=== PATIENT | female | born 1930 | race Caucasian/White ===

== ENCOUNTER 2017-10-30 15:45 | Emergency (ER) | payer MEDICARE ==
[~2017-10-30] VITALS: Ht 157.5 cm; Wt 58.0 kg
[~2017-10-30 15:45] MED LIST: ATOR10TA15 PO; CYAN1TAB24; DIGO0.12 PO; ESCI20TA PO; FURO40TA PO; METO1TAB9 PO; MONT10TA4 PO; POTA10TA2 PO; ROBA500T PO; SYSTSOL EACH EYE; XARE15TA PO
[2017-10-30 15:56] VITALS: BP 150/78; PULSE 80; RESP 16; TEMP 98; O2SAT 95
--- NOTE | 2017-10-30 16:24 | PD ---
HPI Chief Complaint: Fall Time Seen by Provider: 16:15 Travel History International Travel<30 days: No Contact w/Intl Traveler<30days: No Traveled to known affect area: No History of Present Illness HPI The patient was seen and examined in the presence of the nurse. This patient complains of pain in both knees from a fall. She fell last night. She has been ambulatory today but has pain with walking. She has some chronic discomfort in arthritis in both knees. Symptom severity is moderate. Worse with ambulation and weightbearing. No alleviating factors. Duration 1 day. She also mentions a dry cough but has no shortness of breath or chest pain or fever. No history of lung disease. PFSH Past Medical History Hx Anticoagulant Therapy: Yes (XERELTO) Cardiovascular Problems: Yes (CHF, A-FIB, MITRAL VALVE) Social History Alcohol Use: No Tobacco Use: No Substance Use: No Allergies-Medications (Allergen,Severity, Reaction): Coded Allergies: No Known Drug Allergies (Verified Allergy, Unknown, 07/26/17) Reported Meds & Prescriptions Reported Meds & Active Scripts Active Potassium Chloride ER (Potassium Chloride) 10 Meq Tab 10 Meq PO TID Atorvastatin (Atorvastatin Calcium) 10 Mg Tab 10 Mg PO HS Montelukast (Montelukast Sodium) 10 Mg Tab 10 Mg PO HS Escitalopram (Escitalopram Oxalate) 20 Mg Tab 20 Mg PO DAILY Reported Digoxin 0.125 Mg Tab 0.125 Mg PO DAILY Systane Opth Drops (Polyethylene Glycol-Propylene Glycol Opth Drp) 0.4-0.3% Soln 1-2 Drop EACH EYE PRN PRN B12 (Cyanocobalamin) 1,000 Mcg Tab Xarelto (Rivaroxaban) 15 Mg Tab 15 Mg PO DAILY Metoprolol Succinate ER 24 HR (Metoprolol Succinate) 50 Mg Tab 50 Mg PO DAILY Furosemide 40 Mg Tab 40 Mg PO DAILY Review of Systems General / Constitutional: No: Fever Eyes: No: Visual changes HENT: No: Headaches Cardiovascular: No: Chest Pain or Discomfort Respiratory: Positive: Cough, No: Shortness of Breath Gastrointestinal: No: Abdominal Pain Genitourinary: No: Dysuria Musculoskeletal: Positive: Arthralgias, Limited ROM, Pain Skin: No Rash Neurologic: No: Weakness Psychiatric: No: Depression Endocrine: No: Polydipsia Hematologic/Lymphatic: No: Easy Bruising Physical Exam Narrative GENERAL: Well-nourished, well-developed patient in no apparent distress. SKIN: Focused skin assessment reveals no rash and nodules. Skin is Warm and dry. HEAD: Atraumatic. Normocephalic. EYES: Pupils equal and round. No scleral icterus. No injection or drainage. ENT: No nasal bleeding or discharge. Mucous membranes pink and moist. NECK: Trachea midline. No JVD. CARDIOVASCULAR: Irregularly irregular rhythm. No murmur appreciated. RESPIRATORY: No accessory muscle use. Clear to auscultation. Breath sounds equal bilaterally. GASTROINTESTINAL: Abdomen soft, non-tender, nondistended. Hepatic and splenic margins not palpable. MUSCULOSKELETAL: No obvious deformities. No clubbing. No cyanosis. No edema. There is some tenderness to both knees. There is a bit of arthritic change. There is a small bruise on the right knee. NEUROLOGICAL: Awake and alert. No obvious cranial nerve deficits. Motor grossly within normal limits. Normal speech. PSYCHIATRIC: Appropriate mood and affect; insight and judgment normal. Data Data Last Documented VS Vital Signs Date Time Temp Pulse Resp B/P (MAP) Pulse Ox O2 Delivery O2 Flow Rate FiO2 10/30/17 17:25 81 16 142/82 (102) 94 Room Air 10/30/17 15:56 98.0 Orders Orders Knee, Complete (4vws) (10/30/17 ) Knee, Complete (4vws) (10/30/17 ) MDM Medical Decision Making Medical Screen Exam Complete: Yes Emergency Medical Condition: Yes Medical Record Reviewed: Yes Differential Diagnosis Fracture, contusion, dislocation Narrative Course I have reviewed the patient's electronic medical record. I think she may have a viral bronchitis. She is not short of breath and I do not see any indication to work this up extensively at this point I have ordered bilateral knee x-rays. This is her chief complaint. Both knee x-rays are reviewed. There is no fracture. There is osteopenia with arthritic change Incidental note of a questionable loose body but I do not feel this is anything to do with the fall Diagnosis Primary Impression: Knee pain, acute Qualified Codes: M25.561 - Pain in right knee; M25.562 - Pain in left knee Additional Impressions: Fall Qualified Codes: W19.XXXA - Unspecified fall, initial encounter Cough Additional Instructions: Ice and elevate and rest the knees The patient was advised to follow up with their physician and return if they worsen. Med/Other Pt SpecificInfo: Other Disposition: 01 DISCHARGE HOME Condition: Stable Isauro De Leon MD Oct 30, 2017 16:24
--- NOTE | 2017-10-30 17:22 | RADRPT ---
EXAM DATE/TIME: 10/30/2017 16:25 [facility] COMPARISON: No previous studies available for comparison. INDICATIONS : Bilateral knee pain after falling last night. Patient states the whole knee hurts in both knees. MEDICAL HISTORY : Osteoporosis. SURGICAL HISTORY : None. ENCOUNTER: Initial ACUITY: 2 days PAIN SCORE: 10/10 LOCATION: Left knee. FINDINGS: There is diffuse osteopenia. There is narrowing of the medial and lateral compartment of the knee wi th chondrocalcinosis of the menisci. Moderate osteophyte formation the lateral compartment. The sup rapatellar soft tissues are normal in thickness. There is a calcification superimposed over the supe rior aspect of the suprapatellar soft tissues which could possibly represent a loose body within the suprapatellar bursa. No definite fracture is seen. CONCLUSION: 1. No definite fractures seen. 2. Diffuse severe osteopenia. 3. Possible loose body in the nondistended suprapatella bursa. Perico Leger MD on October 30, 2017 at 17:14 Board Certified Radiologist. This report was verified electronically.
--- NOTE | 2017-10-30 17:23 | RADRPT ---
EXAM DATE/TIME: 10/30/2017 16:25 [facility] COMPARISON: No previous studies available for comparison. INDICATIONS : Bilateral knee pain after falling last night. Patient states the whole knee hurts in both knees. MEDICAL HISTORY : Osteoporosis. SURGICAL HISTORY : None. ENCOUNTER: Initial ACUITY: 2 days PAIN SCORE: 10/10 LOCATION: Right knee FINDINGS: Severe osteopenia. Marked narrowing of the lateral compartment of the knee with sclerosis of both si joellen and large osteophytes. Moderate severity degenerative changes in patellofemoral compartment. Ch ondrocalcinosis in the medial meniscus. The suprapatellar soft tissues are normal in thickness. No definite fracture seen. CONCLUSION: 1. No fracture seen. 2. Severe osteopenia. 3. Severe degenerative changes in the lateral compartment. Perico Leger MD on October 30, 2017 at 17:20 Board Certified Radiologist. This report was verified electronically.
[2017-10-30 17:25] VITALS: BP 142/82; PULSE 81; RESP 16; O2SAT 94
== END 2017-10-30 17:54 | disposition home or self-care (01) ==
LOC: PHED 15:45
DX: M25.561 Pain in right knee (principal); M25.562 Pain in left knee; W19.XXXA Unspecified fall, initial encounter; R05 Cough; M17.0 Bilateral primary osteoarthritis of knee; I50.9 Heart failure, unspecified; I48.91 Unspecified atrial fibrillation
CPT/HCPCS: 73564; 99283

== ENCOUNTER 2017-12-24 10:35 | Observation (INO) | payer MEDICARE ==
[2017-12-24] VITALS (7 sets, daily range): BP systolic 132–166; BP diastolic 79–98; PULSE 86–108; RESP 18–20; TEMP 96.8–97.5; O2SAT 92–98
[~2017-12-24] VITALS: Ht 157.5 cm; Wt 53.5 kg
[~2017-12-24 10:35] MED LIST changes: -ROBA500T PO
[2017-12-24] MEDS ORDERED: RANI150T PO (11:04)
[2017-12-24] MEDS ORDERED: METO1TAB43 PO (11:04)
[2017-12-24] MEDS ORDERED: METO1TAB9 PO (11:04)
[2017-12-24] MEDS ORDERED: IRONTAB5 PO (11:04)
--- NOTE | 2017-12-24 11:09 | PD ---
HPI Chief Complaint: Respiratory Symptoms Time Seen by Provider: 10:53 Travel History International Travel<30 days: No Contact w/Intl Traveler<30days: No Traveled to known affect area: No History of Present Illness HPI 87yo F with PMH of CHF, afib on digoxin and xarelto, breast CA in remission presents to the ED with c/o cough and increased phlegm since yesterday. Said she also feels sob. Pt also has epigastric abdominal pain for about 1 week and tripped over her cat 3 days ago and has bilateral anterior rib pain. Said it's not really chest pain, more where she fell across her lower chest. Denies any fever, n/v, dysuria, hematuria, focal weakness or numbness. PFSH Past Medical History Hx Anticoagulant Therapy: Yes (XERELTO) Arthritis: Yes Heart Rhythm Problems: Yes (Afib) Cancer: Yes (Breast) Cardiovascular Problems: Yes (CHF, A-FIB, MITRAL VALVE) Congestive Heart Failure: Yes Diminished Hearing: Yes Tetanus Vaccination: Unknown ?: Not Past Surgical History Cholecystectomy: Yes Mastectomy: Yes (Left) Social History Alcohol Use: No Tobacco Use: No Substance Use: No Allergies-Medications (Allergen,Severity, Reaction): Coded Allergies: No Known Drug Allergies (Verified Allergy, Unknown, 12/24/17) Reported Meds & Prescriptions Reported Meds & Active Scripts Active Potassium Chloride ER (Potassium Chloride) 10 Meq Tab 10 Meq PO TID Atorvastatin (Atorvastatin Calcium) 10 Mg Tab 10 Mg PO HS Montelukast (Montelukast Sodium) 10 Mg Tab 10 Mg PO HS Escitalopram (Escitalopram Oxalate) 20 Mg Tab 20 Mg PO DAILY Reported [Iron] 65 Mg PO DAILY Ranitidine (Ranitidine HCl) 150 Mg Tab 150 Mg PO BID Metoprolol Succinate ER 24 HR (Metoprolol Succinate) 50 Mg Tab 50 Mg PO BID Metoprolol Succinate ER 24 HR (Metoprolol Succinate) 100 Mg Tab 100 Mg PO DAILY Digoxin 0.125 Mg Tab 0.125 Mg PO DAILY B12 (Cyanocobalamin) 1,000 Mcg Tab Xarelto (Rivaroxaban) 15 Mg Tab 15 Mg PO DAILY Furosemide 40 Mg Tab 40 Mg PO DAILY Review of Systems Except as stated in HPI: all other systems reviewed are Neg Physical Exam Narrative GENERAL: 87yo F in mild distress. SKIN: Focused skin assessment warm/dry. HEAD: Atraumatic. Normocephalic. EYES: Pupils equal and round. No scleral icterus. No injection or drainage. ENT: No nasal bleeding or discharge. Mucous membranes pink and moist. NECK: Trachea midline. No JVD. CARDIOVASCULAR: Regular rate and rhythm. No murmur appreciated. RESPIRATORY: + accessory muscle use. Decreased breath sound in right lower lung. +Crackles in left lower lung. GASTROINTESTINAL: Abdomen soft, soft tissue swelling epigastric region with ttp. No rebound tenderness or guarding. MUSCULOSKELETAL: No obvious deformities. No clubbing. No cyanosis. +Bilateral lower extremity edema. NEUROLOGICAL: Awake and alert. No obvious cranial nerve deficits. Motor grossly within normal limits. Normal speech. PSYCHIATRIC: Appropriate mood and affect; insight and judgment normal. Data Data Last Documented VS Vital Signs Date Time Temp Pulse Resp B/P (MAP) Pulse Ox O2 Delivery O2 Flow Rate FiO2 12/24/17 10:58 92 Nasal Cannula 2.00 12/24/17 10:52 97.5 87 20 144/85 (104) Orders Orders Complete Blood Count With Diff (12/24/17 11:01) Basic Metabolic Panel (Bmp) (12/24/17 11:01) B-Type Natriuretic Peptide (12/24/17 11:01) Act Partial Throm Time (Ptt) (12/24/17 11:01) Prothrombin Time / Inr (Pt) (12/24/17 11:01) Magnesium (Mg) (12/24/17 11:01) Troponin I (12/24/17 11:01) Urinalysis - C+S If Indicated (12/24/17 11:01) Chest, Single Ap (12/24/17 11:01) Lipase (12/24/17 11:01) Ct Abd/Pel W Iv Contrast(Rout) (12/24/17 ) Digoxin (12/24/17 11:02) Furosemide Inj (Lasix Inj) (12/24/17 11:45) Iohexol 350 Inj (Omnipaque 350 Inj) (12/24/17 11:51) Admit Order (Ed Use Only) (12/24/17 12:50) Labs Laboratory Tests Test 12/24/17 11:05 12/24/17 12:25 White Blood Count 7.3 TH/MM3 Red Blood Count 4.02 MIL/MM3 Hemoglobin 14.2 GM/DL Hematocrit 42.5 % Mean Corpuscular Volume 105.8 FL Mean Corpuscular Hemoglobin 35.3 PG Mean Corpuscular Hemoglobin Concent 33.4 % Red Cell Distribution Width 13.5 % Platelet Count 219 TH/MM3 Mean Platelet Volume 8.6 FL Neutrophils (%) (Auto) 81.0 % Lymphocytes (%) (Auto) 10.5 % Monocytes (%) (Auto) 6.9 % Eosinophils (%) (Auto) 1.0 % Basophils (%) (Auto) 0.6 % Neutrophils # (Auto) 5.9 TH/MM3 Lymphocytes # (Auto) 0.8 TH/MM3 Monocytes # (Auto) 0.5 TH/MM3 Eosinophils # (Auto) 0.1 TH/MM3 Basophils # (Auto) 0.0 TH/MM3 CBC Comment DIFF FINAL Differential Comment Prothrombin Time 14.2 SEC Prothromb Time International Ratio 1.4 RATIO Activated Partial Thromboplast Time 36.7 SEC Blood Urea Nitrogen 23 MG/DL Creatinine 0.87 MG/DL Random Glucose 100 MG/DL Calcium Level 8.4 MG/DL Magnesium Level 1.7 MG/DL Sodium Level 143 MEQ/L Potassium Level 3.9 MEQ/L Chloride Level 108 MEQ/L Carbon Dioxide Level 24.8 MEQ/L Anion Gap 10 MEQ/L Estimat Glomerular Filtration Rate 61 ML/MIN Troponin I 0.02 NG/ML B-Type Natriuretic Peptide 1472 PG/ML Lipase 111 U/L Digoxin Level 0.6 NG/ML Urine Collection Type CLEAN CATCH Urine Color YELLOW Urine Turbidity SL CLOUDY Urine pH 6.0 Urine Specific Grandy 1.020 Urine Protein TRACE mg/dL Urine Glucose (UA) NEG mg/dL Urine Ketones NEG mg/dL Urine Occult Blood LARGE Urine Nitrite NEG Urine Bilirubin NEG Urine Urobilinogen 0.2 MG/DL Urine Leukocyte Esterase NEG Urine RBC 10-14 /hpf Urine WBC 3-5 /hpf Urine Squamous Epithelial Cells 6-8 /hpf Urine Transitional Epithelial Cells 0-5 /hpf Urine Amorphous Sediment MOD Microscopic Urinalysis Comment CULT NOT INDICATED Urine Collection Time 1225 MDM Medical Decision Making Medical Screen Exam Complete: Yes Emergency Medical Condition: Yes Interpretation(s) EKG: Afib at 92bpm. Normal axis. No significant ST segment elevation or depression. Differential Diagnosis CHF exacerbation vs. pneumonia vs. pancreatitis vs. rib fracture Narrative Course 87yo F with sob and cough for 2 days. Pt is tachypneic but saturating at 92-93 % on RA. Labs reviewed, no leukocytosis. H/H normal. Troponin negative. BNP elevated at 1472. BUN mildly elevated at 23. Lipase normal. Digoxin level low at 0.6. CXR showed cardiomegaly with bibasilar densities. Small right pleural effusion. Pt given lasix 40mg IV. Pt does have increase cough and phelgm so covered with ceftriaxone and azithromycin. Denies any fever. CT a/p showed moderate right and small left pleural effusion with bibasilar densities. Fluid/small hematoma along the anterior abdominal wall greater on the right. Nonobstructing left renal calculus. The hematoma is likely from the fall 3 days ago when she tripped over her cat. Pt denies any head trauma. Said she does not need any pain medication at this time. Discussed with Dr. Sharma and accepted to his service. Diagnosis Primary Impression: CHF exacerbation Qualified Codes: I50.9 - Heart failure, unspecified Additional Impression: Abdominal wall hematoma Qualified Codes: S30.1XXA - Contusion of abdominal wall, initial encounter Admitting Information Admitting Physician Requests: Virginia Verma DO Dec 24, 2017 11:09
[2017-12-24 11:16] LABS: AUTOMATED NEUTROPHIL # 5.9 TH/MM3 (1.8-7.7); BASOPHIL % 0.6 % (0.0-2.0); EOSINOPHIL # 0.1 TH/MM3 (0-0.4); HEMATOCRIT 42.5 % (35.0-46.0); HEMOGLOBIN 14.2 GM/DL (11.6-15.3); LYMPH % 10.5 % (9.0-44.0); LYMPHOCYTE # 0.8 TH/MM3 (1.0-4.8); MEAN CELL VOLUME 105.8 FL (80.0-100.0); MEAN CORPUSCULAR HEMOGLOBIN 35.3 PG (27.0-34.0); MEAN CORPUSCULAR HGB CONC 33.4 % (32.0-36.0); MEAN PLATELET VOLUME 8.6 FL (7.0-11.0); MONO % 6.9 % (0.0-8.0); MONOCYTE # 0.5 TH/MM3 (0-0.9); PLATELET COUNT 219 TH/MM3 (150-450); RED BLOOD COUNT 4.02 MIL/MM3 (4.00-5.30); RED CELL DISTRIBUTION WIDTH 13.5 % (11.6-17.2); WHITE BLOOD COUNT 7.3 TH/MM3 (4.0-11.0)
[2017-12-24 11:28] LABS: CALCIUM 8.4 MG/DL (8.5-10.1)
[2017-12-24 11:29] LABS: BICARBONATE 24.8 MEQ/L (21.0-32.0); MAGNESIUM 1.7 MG/DL (1.5-2.5)
--- NOTE | 2017-12-24 11:30 | RADRPT ---
EXAM DATE: 12/24/2017 11:26 AM EDT AGE/SEX: 87 years / Female INDICATIONS: Short of breath, chest pains CLINICAL DATA: This is the patient's initial encounter. Patient reports that signs and symptoms have been present for 1 week and indicates a pain score of 7/10. MEDICAL/SURGICAL HISTORY: Congestive heart failure. A Fib None. COMPARISON: No prior exams available for comparison. FINDINGS: A single AP view of the chest demonstrates cardiomegaly with bibasilar densities. Small right pleural effusion. Increase in pulmonary vascularity. Osseous structures are intact. Clips in the left axill a. CONCLUSION: 1. Cardiomegaly with bibasilar densities. 2. Small right pleural effusion. Electronically signed by: Pablo Diaz MD 12/24/2017 11:28 AM EDT
[2017-12-24 11:32] LABS: CREATININE 0.87 MG/DL (0.50-1.00)
[2017-12-24 11:33] LABS: INTERNATIONAL NORMALIZED RATIO 1.4 RATIO; PROTHROMBIN TIME - PATIENT 14.2 SEC (9.8-11.6)
[2017-12-24 11:37] LABS: TROPONIN I 0.02 NG/ML (0.02-0.05)
[2017-12-24] MEDS ORDERED: FUROSEMIDE 40 MG/4 ML VIAL IV PUSH ONE (11:45)
[2017-12-24] MEDS ORDERED: IOHEXOL 350 MG/ML 10 ML VIAL (for RAD DIAG) IVCONTRAST ONE (11:51)
--- NOTE | 2017-12-24 12:20 | RADRPT ---
EXAM DATE: 12/24/2017 11:54 AM EDT AGE/SEX: 87 years / Female INDICATIONS: Upper quadrant pain since fall last week. CLINICAL DATA: This is the patient's initial encounter. Patient reports that signs and symptoms have been present for 1 week and indicates a pain score of 5/10. MEDICAL/SURGICAL HISTORY: Congestive heart failure. Carcinoma, breast. Hypertension. Atrial fibrillation. Cholecystectomy. Mastectomy, left. ORAL CONTRAST: No oral contrast ingested. RADIATION DOSE: 6.57 CTDI (mGy) COMPARISON: No prior exams available for comparison. TECHNIQUE: Multiple contiguous axial images were obtained through the abdomen and pelvis following b olus infusion of 85 ml Omnipaque 350 (iohexol) nonionic water-soluble contrast as a single exam dos e. No oral contrast ingested. Using automated exposure control and adjustment of the mA and/or kV ac cording to patient size, radiation dose was kept as low as reasonably achievable to obtain optimal di agnostic quality images. DICOM format image data is available electronically for review and comparis on. FINDINGS: Lower Lungs: Moderate right and small left pleural effusion. Bibasilar densities Liver: The liver has a homogeneous density without space-occupying lesion. Cholecystectomy clips. The re is no dilation of the biliary tree. Spleen: Homogeneous density without enlargement. Pancreas: Unremarkable without mass or calcification. Kidneys: Normal in size and shape. No evidence of mass or hydronephrosis. 4 mm nonobstructing lower pole left renal calculus. Adrenal Glands: Unremarkable. Aorta: The aorta and proximal iliac vessels are grossly unremarkable without aneurysmal dilation. Bowel/Mesentery: The bowel loops are grossly unremarkable. The cecum and sigmoid colon have a normal configuration. Abdominal Wall: Small fat-containing ventral wall hernia lower abdomen and midline. Small fluid gómez ection anterior abdominal wall just to the right of midline measuring 3.0 x 2.2 cm. Retroperitoneum: No evidence of adenopathy in the retrocrural, para-aortic, or deep pelvic regions. Bladder: Contours are smooth. Reproductive Organs: No abnormal masses or calcifications seen. Inguinal: The inguinal region is unremarkable without evidence of adenopathy. Bony Structures: Unremarkable. CONCLUSION: 1. Moderate right and small left pleural effusion with bibasilar densities. 2. Fluid/small hematoma along the anterior abdominal wall greater on the right 3. Nonobstructing left renal calculus. Electronically signed by: Pablo Diaz MD 12/24/2017 12:19 PM EDT
[2017-12-24 12:48] LABS: BILIRUBIN, URINE NEG (NEG); BLOOD, URINE LARGE (NEG); GLUCOSE,URINE NEG (NEG); KETONE, URINE NEG (NEG); NITRITE,URINE NEG (NEG); URINE COLOR YELLOW (YELLW/STRAW); URINE LEUKOCYTE ESTERASE NEG (NEG)
[2017-12-24 13:00] LABS: AMORPHOUS SEDIMENT, URINE MOD; TRANSITIONAL EPI CELLS, URINE 0-5 /hpf
--- NOTE | 2017-12-24 13:58 | HHI.HP ---
[facility] Primary Care Physician Amber Fitzgerald, SHARI Admission Diagnosis CHF exacerbation, abdominal wall hematoma Diagnoses: Chief Complaint: Cough, shortness of breath. Travel History International Travel<30 Days: No Contact w/Intl Traveler <30 Da: No Traveled to Known Affected Are: No History of Present Illness Ms. Rdz is a pleasant 87-year-old female with a history of CHF, atrial fibrillation on digoxin and Xarelto, history of breast cancer who presents to the emergency department on 12/24/2017 due to cough and increased phlegm since . Patient also reports dyspnea as well as abdominal pain for 1 week. She denies any fever, nausea vomiting, dysuria, hematuria. No changes in bowel habits. Of note patient recently fell. On arrival, BNP was 1472, CT abdomen pelvis shows moderate right and small left pleural effusion with bibasilar densities. CT abdomen pelvis also showed fluid/small hematoma along the anterior abdominal wall likely related to her fall. Review of Systems Except as stated in HPI: all other systems reviewed are Neg Past Family Social History Past Medical History Atrial fibrillation, arthritis, CHF, congestive heart failure, breast cancer. Past Surgical History Cholecystectomy, left mastectomy. Reported Medications Potassium Chloride ER (Potassium Chloride) 10 Meq Tab 10 Meq PO TID Atorvastatin (Atorvastatin Calcium) 10 Mg Tab 10 Mg PO HS Montelukast (Montelukast Sodium) 10 Mg Tab 10 Mg PO HS Escitalopram (Escitalopram Oxalate) 20 Mg Tab 20 Mg PO DAILY Reported [Iron] 65 Mg PO DAILY Ranitidine (Ranitidine HCl) 150 Mg Tab 150 Mg PO BID Metoprolol Succinate ER 24 HR (Metoprolol Succinate) 50 Mg Tab 50 Mg PO BID Metoprolol Succinate ER 24 HR (Metoprolol Succinate) 100 Mg Tab 100 Mg PO DAILY Digoxin 0.125 Mg Tab 0.125 Mg PO DAILY B12 (Cyanocobalamin) 1,000 Mcg Tab Xarelto (Rivaroxaban) 15 Mg Tab 15 Mg PO DAILY Furosemide 40 Mg Tab 40 Mg PO DAILY Allergies: Coded Allergies: No Known Drug Allergies (Verified Allergy, Unknown, 12/24/17) Family History Sister had Parkinson's Social History Patient denies using alcohol, tobacco, illicit drugs. Physical Exam Vital Signs Vital Signs Date Time Temp Pulse Resp B/P (MAP) Pulse Ox O2 Delivery O2 Flow Rate FiO2 12/24/17 13:24 86 20 138/98 (111) 97 Nasal Cannula 2.00 12/24/17 10:58 92 Nasal Cannula 2.00 12/24/17 10:52 97.5 87 20 144/85 (104) 92 12/24/17 10:44 20 92 Nasal Cannula 2.00 Physical Exam GENERAL: This is a well-nourished, well-developed patient, in no apparent distress. SKIN: No rashes, ecchymoses or lesions. Warm and dry. HEAD: Atraumatic. Normocephalic. No temporal or scalp tenderness. EYES: Pupils equal round and reactive. No injection or drainage. ENT: Nose without bleeding, purulent drainage or septal hematoma. Airway patent. NECK: Trachea midline. No lymphadenopathy. Supple, nontender, no meningeal signs. CARDIOVASCULAR: R tachycardic without murmurs, gallops, or rubs. No JVD. RESPIRATORY: Clear to auscultation. Breath sounds equal bilaterally. No wheezes. Bibasilar crackles and right-sided lower lung diminished down. GASTROINTESTINAL: Abdomen soft, non-tender, nondistended. No guarding. MUSCULOSKELETAL: Extremities without clubbing, cyanosis, or edema. NEUROLOGICAL: Awake and alert. Cranial nerves II through XII intact. No focal neurological deficits. Normal speech. Laboratory Laboratory Tests Test 12/24/17 11:05 12/24/17 12:25 White Blood Count 7.3 Red Blood Count 4.02 Hemoglobin 14.2 Hematocrit 42.5 Mean Corpuscular Volume 105.8 Mean Corpuscular Hemoglobin 35.3 Mean Corpuscular Hemoglobin Concent 33.4 Red Cell Distribution Width 13.5 Platelet Count 219 Mean Platelet Volume 8.6 Neutrophils (%) (Auto) 81.0 Lymphocytes (%) (Auto) 10.5 Monocytes (%) (Auto) 6.9 Eosinophils (%) (Auto) 1.0 Basophils (%) (Auto) 0.6 Neutrophils # (Auto) 5.9 Lymphocytes # (Auto) 0.8 Monocytes # (Auto) 0.5 Eosinophils # (Auto) 0.1 Basophils # (Auto) 0.0 CBC Comment DIFF FINAL Differential Comment Prothrombin Time 14.2 Prothromb Time International Ratio 1.4 Activated Partial Thromboplast Time 36.7 Blood Urea Nitrogen 23 Creatinine 0.87 Random Glucose 100 Calcium Level 8.4 Magnesium Level 1.7 Sodium Level 143 Potassium Level 3.9 Chloride Level 108 Carbon Dioxide Level 24.8 Anion Gap 10 Estimat Glomerular Filtration Rate 61 Troponin I 0.02 B-Type Natriuretic Peptide 1472 Lipase 111 Digoxin Level 0.6 Urine Collection Type CLEAN CATCH Urine Color YELLOW Urine Turbidity SL CLOUDY Urine pH 6.0 Urine Specific [place] 1.020 Urine Protein TRACE Urine Glucose (UA) NEG Urine Ketones NEG Urine Occult Blood LARGE Urine Nitrite NEG Urine Bilirubin NEG Urine Urobilinogen 0.2 Urine Leukocyte Esterase NEG Urine RBC 10-14 Urine WBC 3-5 Urine Squamous Epithelial Cells 6-8 Urine Transitional Epithelial Cells 0-5 Urine Amorphous Sediment MOD Microscopic Urinalysis Comment CULT NOT INDICATED Urine Collection Time 1225 Result Diagram: 12/24/17 1105 12/24/17 1105 Imaging Last Impressions Chest X-Ray 12/24/17 1101 Signed Impressions: CONCLUSION: 1. Cardiomegaly with bibasilar densities. 2. Small right pleural effusion. Abdomen/Pelvis CT 12/24/17 0000 Signed Impressions: CONCLUSION: 1. Moderate right and small left pleural effusion with bibasilar densities. 2. Fluid/small hematoma along the anterior abdominal wall greater on the right 3. Nonobstructing left renal calculus. Caprini VTE Risk Assessment Caprini VTE Risk Assessment: Mod/High Risk (score >= 2) Caprini Risk Assessment Model Point Value = 1 Point Value = 2 Point Value = 3 Point Value = 5 Age 41-60 Minor surgery BMI > 25 kg/m2 Swollen legs Varicose veins or History of unexplained or recurrent spontaneous Oral contraceptives or hormone replacement Sepsis (< 1 month) Serious lung disease, including pneumonia (< 1 month) Abnormal pulmonary function Acute myocardial infarction Congestive heart failure (< 1 month) History of inflammatory bowel disease Medical patient at bed rest Age 61-74 Arthroscopic surgery Major open surgery (> 45 min) Laparoscopic surgery (> 45 min) Malignancy Confined to bed (> 72 hours) Immobilizing plaster cast Central venous access Age >= 75 History of VTE Family history of VTE Factor V Leiden Prothrombin [id number] Lupus anticoagulant Anticardiolipin antibodies Elevated serum homocysteine Heparin-induced thrombocytopenia Other congenital or acquired thrombophilia Stroke (< 1 month) Elective arthroplasty Hip, pelvis, or leg fracture Acute spinal cord injury (< 1 month) Prophylaxis Regimen Total Risk Factor Score Risk Level Prophylaxis Regimen 0-1 Low Early ambulation 2 Moderate Order ONE of the following: *Sequential Compression Device (SCD) *Heparin 5000 units SQ BID 3-4 Higher Order ONE of the following medications: *Heparin 5000 units SQ TID *Enoxaparin/Lovenox 40 mg SQ daily (WT < 150 kg, CrCl > 30 mL/min) *Enoxaparin/Lovenox 30 mg SQ daily (WT < 150 kg, CrCl > 10-29 mL/min) *Enoxaparin/Lovenox 30 mg SQ BID (WT < 150 kg, CrCl > 30 mL/min) AND/OR *Sequential Compression Device (SCD) 5 or more Highest Order ONE of the following medications: *Heparin 5000 units SQ TID (Preferred with Epidurals) *Enoxaparin/Lovenox 40 mg SQ daily (WT < 150 kg, CrCl > 30 mL/min) *Enoxaparin/Lovenox 30 mg SQ daily (WT < 150 kg, CrCl > 10-29 mL/min) *Enoxaparin/Lovenox 30 mg SQ BID (WT < 150 kg, CrCl > 30 mL/min) AND *Sequential Compression Device (SCD) Assessment and Plan Problem List: (1) CHF exacerbation ICD Code: I50.9 - Heart failure, unspecified Status: Acute (2) Pleural effusion, right ICD Code: J90 - Pleural effusion, not elsewhere classified (3) Atrial fibrillation ICD Code: I48.91 - Unspecified atrial fibrillation Status: Chronic Assessment and Plan Ms. dRz is a pleasant 87-year-old female with a history of congestive heart failure, atrial fibrillation who presents to the emergency department due to shortness of breath and cough that started at night on 2017. She reports productive cough. No fever or chills. She apparently tripped over and fell 3 days ago. Patient underwent chest x-ray as well as CT abdomen pelvis both of which showed right sided pleural effusion and a small left pleural effusion. BNP was elevated. Acute CHF exacerbation -Patient follows up with [facility] heart [facility]. We do not have any echocardiogram in our EMR system. -We will try to obtain last cardiology note plus echocardiogram from [facility] group tomorrow. -Continue Lasix 20 mg IV twice daily. -Continue metoprolol succinate 50 mg twice daily. Atrial fibrillation -Metoprolol succinate 50 mg twice daily. Will hold Xarelto for now. Probable pneumonia Bilateral pleural effusion right more than left -patient symptoms and right-sided pleural effusion with infiltration concerning for pneumonia. -We will keep patient on Levaquin 500 mg p.o. daily. -Ultrasound-guided thoracentesis tomorrow by IR. Last Xarelto use was at 9 PM on 12/23/2017. DNR. Xarelto on hold. Problem Qualifiers (1) CHF exacerbation: Qualified Codes: I50.9 - Heart failure, unspecified Lovely Sharma DO Dec 24, 2017 13:58
[2017-12-24] MEDS ORDERED: cefTRIAXone INJ 1,000 MG in SODIUM CHLORIDE 0.9% INJ 100 ML IV ONE (14:00)
[2017-12-24] MEDS ORDERED: AZITHROMYCIN 250 MG TAB PO ONE (14:00)
[2017-12-24] MEDS ORDERED: BISACODYL 10 MG SUPP RECTAL PRN (16:15)
[2017-12-24] MEDS ORDERED: NALOXONE HCL 0.4 MG/ML AMP IV PUSH PRN (16:15)
[2017-12-24] MEDS ORDERED: SENNOSIDES 8.6 MG TAB PO PRN (16:15)
[2017-12-24] MEDS ORDERED: SODIUM CHLORIDE 0.9% FLUSH 10 ML FLUSH IV FLUSH PRN (16:15)
[2017-12-24] MEDS ORDERED: LACTULOSE SYRUP 20 GM/30 ML CUP PO PRN (16:15)
[2017-12-24] MEDS ORDERED: ACETAMINOPHEN 325 MG TAB PO PRN (16:15)
[2017-12-24] MEDS ORDERED: METOPROLOL TARTRATE 5 MG/5 ML VIAL IV PUSH ONE (16:15)
[2017-12-24] MEDS ORDERED: METOPROLOL TARTRATE 50 MG TAB PO ONE ×2 (16:15→18:30)
[2017-12-24] MEDS ORDERED: MAGNESIUM HYDROXIDE SUSP 30 ML CUP PO PRN (16:15)
[2017-12-24] MEDS: FUROSEMIDE 20 MG/2 ML VIAL IV PUSH SCH (17:21)
[2017-12-24] MEDS: ATORVASTATIN 10 MG TAB PO SCH (20:58)
[2017-12-24] MEDS: SODIUM CHLORIDE 0.9% FLUSH 10 ML FLUSH IV FLUSH SCH (20:58)
[2017-12-24] MEDS: FAMOTIDINE 20 MG TAB PO SCH (20:58)
[2017-12-24] MEDS ORDERED: METOPROLOL SUCCINATE 50 MG EXTENDED RELEASE TAB PO SCH (21:00)
[2017-12-24] MEDS: METOPROLOL TARTRATE 25 MG TAB PO SCH (21:40)
[2017-12-24] MEDS ORDERED: METOPROLOL TARTRATE 50 MG TAB PO SCH (22:00)
[2017-12-25] VITALS (11 sets, daily range): BP systolic 122–169; BP diastolic 67–92; PULSE 80–116; RESP 20–21; TEMP 96–98.4; O2SAT 90–98
[2017-12-25] MEDS: METOPROLOL TARTRATE 25 MG TAB PO SCH ×3 (05:43→21:05)
[2017-12-25] MEDS: ESCITALOPRAM OXALATE 20 MG TAB PO SCH (08:09)
[2017-12-25] MEDS: FAMOTIDINE 20 MG TAB PO SCH ×3 (08:09→21:05)
[2017-12-25] MEDS: DIGOXIN 0.125 MG TAB PO SCH (08:09)
[2017-12-25] MEDS: FUROSEMIDE 20 MG/2 ML VIAL IV PUSH SCH ×2 (08:10→18:20)
[2017-12-25] MEDS: SODIUM CHLORIDE 0.9% FLUSH 10 ML FLUSH IV FLUSH SCH ×2 (08:12→21:06)
[2017-12-25] MEDS ORDERED: LEVOFLOXACIN 500 MG TAB PO SCH (09:00)
--- NOTE | 2017-12-25 14:24 | RADRPT ---
EXAM DATE: 12/25/2017 1:45 PM EDT AGE/SEX: 87 years / Female INDICATIONS: Right pleural effusion. CLINICAL DATA: This is the patient's initial encounter. Patient reports that signs and symptoms have been present for 1 week and indicates a pain score of 0/10. MEDICAL/SURGICAL HISTORY: Congestive heart failure. Hypertension. Macular degeneration. Atrial fibrillation. Anticoagulant therapy. Hyperlipidemia. Breast cancer. Tonsillectomy. Cataract extract ion. Cardiac ablation. Abdominal herniacholecystectomy. Left breast mastectomy. COMPARISON: [facility], CHEST SINGLE AP, 12/24/2017. . FLUID: Total volume of 850 cc cc of clear, yellow fluid was removed. Fluid was sent to lab for ordered studies. . . TECHNIQUE: Ultrasound guidance for thoracentesis. Thoracentesis. The risks, benefits, and alternatives to ultrasound guided thoracentesis were explained to the patien t in lay simple terms, including the risk of bleeding and infection. Written and verbal informed con sent was obtained. Appropriate area for right thoracentesis was marked under ultrasound guidance with the patient in the upright position. Overlying skin was prepped and draped in the usual sterile fashion and with local anesthetic, a dermatotomy was made with an 11 blade scalpel. A 6 [place] thoracentesis catheter was placed in the pleural space and fluid was removed. Catheter was then removed and a sterile dressing applied. There were no immediate complications. The patient tolerated the procedure well and the lef t the ultrasound suite in stable condition. Chest radiograph is to be obtained. FINDINGS: Successful ultrasound-guided right thoracentesis as described above. CONCLUSION: 1. Successful ultrasound-guided right thoracentesis. Electronically signed by: Joseluis Bojorquez MD 12/25/2017 2:23 PM EDT
--- NOTE | 2017-12-25 14:25 | RADRPT ---
EXAM DATE: 12/25/2017 1:57 PM EDT AGE/SEX: 87 years / Female INDICATIONS: Post right thorocentesis CLINICAL DATA: This is the patient's initial encounter. Patient reports that signs and symptoms have been present for 1 day and indicates a pain score of 1/10. MEDICAL/SURGICAL HISTORY: . CHF, AFIB None. COMPARISON: No prior exams available for comparison. FINDINGS: A single frontal expiratory view of the chest was performed. The lungs are symmetrically aerated and clear. No evidence of pneumothorax. The heart is enlarged. Mild pulmonary vascular congestion is no meche. CONCLUSION: 1. No evidence of pneumothorax status post right thoracentesis. 2. Cardiomegaly. 3. Mild pulmonary vascular congestion. Electronically signed by: Joseluis Bojorquez MD 12/25/2017 2:24 PM EDT
--- NOTE | 2017-12-25 14:33 | HHI.PR ---
Subjective Remarks Follow-up for CHF exacerbation, right pleural effusion. Patient is currently doing well. On nasal cannula. Denies any chest pain, shortness of breath, fever or chills. Objective Vitals Vital Signs Date Time Temp Pulse Resp B/P (MAP) Pulse Ox O2 Delivery O2 Flow Rate FiO2 12/25/17 12:42 95 Nasal Cannula 2.00 12/25/17 04:00 98.4 80 20 135/79 (97) 98 12/25/17 00:00 98.0 83 20 169/91 (117) 98 12/24/17 20:00 87 12/24/17 20:00 97.1 88 18 132/79 (96) 97 12/24/17 19:24 98 Nasal Cannula 2.00 12/24/17 16:00 108 12/24/17 15:45 96.8 90 20 166/91 (116) 92 12/24/17 15:09 I/O 12/24/17 12/24/17 12/24/17 12/25/17 12/25/17 12/25/17 07:00 15:00 23:00 07:00 15:00 23:00 Intake Total 100 ml 780 ml Output Total 800 ml 300 ml Balance -700 ml 480 ml Intake Oral 780 ml IV Total 100 ml Output Urine Total 800 ml 300 ml # Voids 3 5 # Bowel Movements 0 1 Result Diagram: 12/24/17 1105 12/24/17 1105 Imaging Last Impressions Thoracentesis Ultrasound 12/25/17 0000 Signed Impressions: CONCLUSION: 1. Successful ultrasound-guided right thoracentesis. Chest X-Ray 12/25/17 0000 Signed Impressions: CONCLUSION: 1. No evidence of pneumothorax status post right thoracentesis. 2. Cardiomegaly. 3. Mild pulmonary vascular congestion. Abdomen/Pelvis CT 12/24/17 0000 Signed Impressions: CONCLUSION: 1. Moderate right and small left pleural effusion with bibasilar densities. 2. Fluid/small hematoma along the anterior abdominal wall greater on the right 3. Nonobstructing left renal calculus. Objective Remarks GENERAL: Alert, oriented 3, NAD. SKIN: Warm and dry. HEAD: Normocephalic. EYES: No scleral icterus. No injection or drainage. NECK: Supple, trachea midline. No JVD or lymphadenopathy. CARDIOVASCULAR: Regular rate and rhythm without murmurs, gallops, or rubs. RESPIRATORY: Breath sounds equal bilaterally. No accessory muscle use. GASTROINTESTINAL: Abdomen soft, non-tender, nondistended. MUSCULOSKELETAL: No cyanosis, or edema. BACK: Nontender without obvious deformity. No CVA tenderness. Procedures Right-sided thoracentesis ==> 850 cc of fluid drained. A/P Problem List: (1) CHF exacerbation ICD Code: I50.9 - Heart failure, unspecified Status: Acute (2) Pleural effusion, right ICD Code: J90 - Pleural effusion, not elsewhere classified (3) Atrial fibrillation ICD Code: I48.91 - Unspecified atrial fibrillation Status: Chronic Assessment and Plan Ms. Rdz is a pleasant 87-year-old female with a history of congestive heart failure, atrial fibrillation who presents to the emergency department due to shortness of breath and cough that started at night on 2017. She reports productive cough. No fever or chills. She apparently tripped over and fell 3 days ago. Patient underwent chest x-ray as well as CT abdomen pelvis both of which showed right sided pleural effusion and a small left pleural effusion. BNP was elevated. Acute CHF exacerbation -Patient follows up with [facility] heart group. -Currently Lasix 20 mg IV twice daily. Will try to switch to torsemide upon discharge. -Continue metoprolol succinate 50 mg twice daily. Atrial fibrillation -Metoprolol succinate 50 mg twice daily. Patient is a status post thoracentesis. We can start Xarelto from tomorrow. Probable pneumonia Bilateral pleural effusion right more than left -patient symptoms and right-sided pleural effusion with infiltration concerning for pneumonia. -We will keep patient on Levaquin 500 mg p.o. daily. -Patient will need outpatient follow-up and possibly four-week follow-up chest x-ray. DNR. Xarelto on hold. Problem Qualifiers (1) CHF exacerbation: Qualified Codes: I50.9 - Heart failure, unspecified Lovely Sharma DO Dec 25, 2017 14:33
[2017-12-25 17:14] LABS: PLEURAL FLUID LYMPHS 36 %; PLEURAL FLUID MESOTHELIAL 6 %; PLEURAL FLUID MONOS 10 %; PLEURAL FLUID POLYS (SEGS) 48 %; PLEURAL FLUID RBC 880 /MM3 (0-0); PLEURAL FLUID WBC 360 /MM3 (0-10)
[2017-12-25] MEDS ORDERED: LEVA250T14 PO (17:35)
[2017-12-25] MEDS ORDERED: POTA10TA2 PO (17:35)
[2017-12-25] MEDS ORDERED: TORS20TA PO (17:35)
--- NOTE | 2017-12-25 17:38 | HHI.FF ---
Face to Face Verification Diagnosis: (1) Pleural effusion, right (2) CHF exacerbation Physical Therapy Order: Evaluate and Treat, Improve ambulation, Strength and gait training Home Health Nursing Order: Medical education CHF education Medication education-adverse effect Nursing assessment with vital signs I have seen patient Opal Rdz on 12/25/17. My clinical findings support the need for the requested home health care services because: Patient has SOB Deconditioned w/ increased weakness Med compliance is questionable Limited ability to care for self Need for psychosocial assistance Impaired cognition/judgement High risk of falls Infection w/ risk of complications I certify that my clinical findings support that this patient is homebound because: Unsteady gait/balance Unsafe to leave home unassisted [id number] bed/chair Unable to use public transportation Poor cardiac reserve Lovely Sharma DO Dec 25, 2017 17:38
[2017-12-25 17:59] LABS: TOTAL PROTEIN,PLEURAL FLUID 1.8 GM/DL
[2017-12-25] MEDS: ATORVASTATIN 10 MG TAB PO SCH (21:05)
--- NOTE | 2017-12-25 23:35 | EKG ---
Date Performed: 12/24/2017 Time Performed: 10:41:40 PTAGE: 87 years EKG: ATRIAL FIBRILLATION INDETERMINATE AXIS INCOMPLETE RIGHT BUNDLE BRANCH BLOCK NON-SPECIFIC ST /T WAVE CHANGES ABNORMAL ECG INTERPRETATION BASED ON A DEFAULT AGE OF 40 YEARS NO PREVIOUS TRACING DOCTOR: Bandar Mclaughlin Interpretating Date/Time 12/25/2017 23:34:41
[2017-12-26 00:06] VITALS: BP 130/78; PULSE 93; RESP 20; TEMP 97.6; O2SAT 95
[2017-12-26 04:31] VITALS: BP 125/76; PULSE 90; RESP 20; TEMP 97.8; O2SAT 95
[2017-12-26] MEDS: METOPROLOL TARTRATE 25 MG TAB PO SCH (06:32)
[2017-12-26 08:00] VITALS: PULSE 59
[2017-12-26 08:31] VITALS: BP 149/76; PULSE 87; RESP 18; TEMP 96.7; O2SAT 97
--- NOTE | 2017-12-26 08:39 | HHI.DS ---
Discharge Summary Admission Date Dec 24, 2017 at 12:51 Discharge Date: Dec 26, 2017 Admitting Diagnosis CHF exacerbation, abdominal wall hematoma (1) CHF exacerbation ICD Code: I50.9 - Heart failure, unspecified Status: Acute (2) Pleural effusion, right ICD Code: J90 - Pleural effusion, not elsewhere classified (3) Atrial fibrillation ICD Code: I48.91 - Unspecified atrial fibrillation Status: Chronic Procedures Right-sided thoracentesis ==> 850 cc of fluid drained. Brief History - From Admission Ms. Rdz is a pleasant 87-year-old female with a history of CHF, atrial fibrillation on digoxin and Xarelto, history of breast cancer who presents to the emergency department on 12/24/2017 due to cough and increased phlegm since . Patient also reports dyspnea as well as abdominal pain for 1 week. She denies any fever, nausea vomiting, dysuria, hematuria. No changes in bowel habits. Of note patient recently fell. On arrival, BNP was 1472, CT abdomen pelvis shows moderate right and small left pleural effusion with bibasilar densities. CT abdomen pelvis also showed fluid/small hematoma along the anterior abdominal wall likely related to her fall. CBC/BMP: 12/24/17 1105 12/24/17 1105 Significant Findings Laboratory Tests Test 12/24/17 11:05 12/24/17 12:25 12/25/17 13:15 Mean Corpuscular Volume 105.8 FL (80.0-100.0) Mean Corpuscular Hemoglobin 35.3 PG (27.0-34.0) Neutrophils (%) (Auto) 81.0 % (16.0-70.0) Lymphocytes # (Auto) 0.8 TH/MM3 (1.0-4.8) Prothrombin Time 14.2 SEC (9.8-11.6) Activated Partial Thromboplast Time 36.7 SEC (24.3-30.1) Blood Urea Nitrogen 23 MG/DL (7-18) Calcium Level 8.4 MG/DL (8.5-10.1) Chloride Level 108 MEQ/L (98-107) Estimat Glomerular Filtration Rate 61 ML/MIN (>89) B-Type Natriuretic Peptide 1472 PG/ML (0-100) Digoxin Level 0.6 NG/ML (0.8-2.0) Urine Occult Blood LARGE (NEG) Urine RBC 10-14 /hpf (0-3) Urine Squamous Epithelial Cells 6-8 /hpf (0-5) Pleural Fluid WBC 360 /MM3 (0-10) Pleural Fluid RBC 880 /MM3 (0-0) Imaging Last Impressions Thoracentesis Ultrasound 12/25/17 Signed Impressions: CONCLUSION: 1. Successful ultrasound-guided right thoracentesis. Chest X-Ray 12/25/17 Signed Impressions: CONCLUSION: 1. No evidence of pneumothorax status post right thoracentesis. 2. Cardiomegaly. 3. Mild pulmonary vascular congestion. Abdomen/Pelvis CT 12/24/17 Signed Impressions: CONCLUSION: 1. Moderate right and small left pleural effusion with bibasilar densities. 2. Fluid/small hematoma along the anterior abdominal wall greater on the right 3. Nonobstructing left renal calculus. PE at Discharge GENERAL: Alert, oriented 3, NAD. SKIN: Warm and dry. HEAD: Normocephalic. EYES: No scleral icterus. No injection or drainage. NECK: Supple, trachea midline. No JVD or lymphadenopathy. CARDIOVASCULAR: Regular rate and rhythm without murmurs, gallops, or rubs. RESPIRATORY: Breath sounds equal bilaterally. No accessory muscle use. GASTROINTESTINAL: Abdomen soft, non-tender, nondistended. MUSCULOSKELETAL: No cyanosis, or edema. BACK: Nontender without obvious deformity. No CVA tenderness. Pt update on day of discharge Follow-up for CHF exacerbation, right pleural effusion. Patient seen and examined, sitting up in bed in no apparent distress. No shortness of breath. Patient tolerating p.o. intake well no abdominal pain, nausea or vomiting. Patient past walk test today with oxygen saturations 96% on room air. Denies any chest pain, fever or chills. Afebrile overnight. Vital signs stable. Will discharge home today. Hospital Course Ms. Rdz is a pleasant 87-year-old female with a history of congestive heart failure, atrial fibrillation who presents to the emergency department due to shortness of breath and cough that started at night on 2017. She reports productive cough. No fever or chills. She apparently tripped over and fell 3 days ago. Patient underwent chest x-ray as well as CT abdomen pelvis both of which showed right sided pleural effusion and a small left pleural effusion. BNP was elevated. Patient with acute CHF exacerbation upon presentation. She does follow up with [facility]. Patient was given Lasix IV twice daily. Was switched over to torsemide upon discharge. Patient was continued on metoprolol succinate 50 mg twice daily. Patient does have a history of atrial fibrillation continued beta-eric. Restarted Xarelto upon discharge. Patient is status post thoracentesis for right pleural effusion and probable pneumonia. Patient improved status post thoracentesis. Will continue on Levaquin, patient encouraged to continue to completion. Patient was stabilized upon dc. Follow up PCP and cardiology. Pt Condition on Discharge: Good Discharge Disposition: Disch w/ Home Health Serv Discharge Time: > 30 minutes Discharge Instructions DIET: Follow Instructions for: Heart Healthy Diet Speech Therapy-Diet Recommends: Regular Activities you can perform: Regular-No Restrictions Follow up Referrals: Cardiology - 10 Days with Rebecca Osei MD PCP Follow-up - 1 Week New Medications: Torsemide (Torsemide) 20 Mg Tab 20 MG PO DAILY for Fluid, #30 TAB 3 Refills Levofloxacin (Levaquin) 250 Mg Tablet 250 MG PO DAILY for Infection, #6 TAB Changed Medications: Potassium Chloride ER (Potassium Chloride ER) 10 Meq Tab 10 MEQ PO BID for Electrolyte Replacement, #60 TAB 3 Refills (Changed from: TID ; 90; Refills: 0) Continued Medications: Atorvastatin (Atorvastatin) 10 Mg Tab 10 MG PO HS for Cholesterol Management, #30 TAB 0 Refills Cyanocobalamin (B12) 1,000 Mcg Tab Digoxin (Digoxin) 0.125 Mg Tab 0.125 MG PO DAILY for Regulate Heart Beat, #30 TAB 0 Refills Escitalopram (Escitalopram) 20 Mg Tab 20 MG PO DAILY, #30 TAB 0 Refills Metoprolol Succinate ER 24 HR (Metoprolol Succinate ER 24 HR) 50 Mg Tab 50 MG PO BID, #30 TAB 0 Refills Montelukast (Montelukast) 10 Mg Tab 10 MG PO HS, #30 TAB 0 Refills Ranitidine (Ranitidine) 150 Mg Tab 150 MG PO BID for Heartburn Management, #60 TAB 0 Refills Rivaroxaban (Xarelto) 15 Mg Tab 15 MG PO DAILY for Blood Clot Prevention, TAB 0 Refills [Iron] () 65 MG PO DAILY Discontinued Medications: Furosemide (Furosemide) 40 Mg Tab 40 MG PO DAILY, #30 TAB 0 Refills Metoprolol Succinate ER 24 HR (Metoprolol Succinate ER 24 HR) 100 Mg Tab 100 MG PO DAILY, #30 TAB 0 Refills Sahara Galindo Dec 26, 2017 08:39
[2017-12-26] MEDS ORDERED: LEVOFLOXACIN 250 MG TAB PO SCH (09:00)
[2017-12-26 09:15] VITALS: O2SAT 96
[2017-12-26] MEDS ORDERED: RIVAROXABAN 15 MG TAB PO SCH (09:30)
[2017-12-26] MEDS: ESCITALOPRAM OXALATE 20 MG TAB PO SCH (09:39)
[2017-12-26] MEDS: FAMOTIDINE 20 MG TAB PO SCH (09:39)
[2017-12-26] MEDS: DIGOXIN 0.125 MG TAB PO SCH (09:39)
[2017-12-26] MEDS: FUROSEMIDE 20 MG/2 ML VIAL IV PUSH SCH (09:40)
[2017-12-26] MEDS: SODIUM CHLORIDE 0.9% FLUSH 10 ML FLUSH IV FLUSH SCH (09:40)
== END 2017-12-26 10:55 | disposition home or self-care (01) ==
LOC: PHED 10:35 → PHEDA 12:51 → PH3A 15:35
PROVIDERS: ADMIT Hospitalist; ATTEND Hospitalist
DX: I50.9 Heart failure, unspecified (principal); J90 Pleural effusion, not elsewhere classified; I48.91 Unspecified atrial fibrillation; N20.0 Calculus of kidney; S30.1XXA Contusion of abdominal wall, initial encounter; Z79.01 Long term (current) use of anticoagulants; Z85.3 Personal history of malignant neoplasm of breast; Z90.12 Acquired absence of left breast and nipple; Z66 Do not resuscitate; Z82.0 Family history of epilepsy and other diseases of the nervous system; W01.0XXA Fall on same level from slipping, tripping and stumbling without subsequent striking against object, initial encounter
CPT/HCPCS: 32555; 71045; 74177; 80048; 80162; 81001; 82945; 83615; 83690; 83735; 83880; 84157; 84484; 85025; 85610; 85730; 87070; 87205; 88112; 88305; 89051; 93005; 94618; 96365; 96375; 99285; C1729; G0378; J0696; J1940; Q9967

== ENCOUNTER 2018-05-12 06:22 | Inpatient (IN) ==
--- NOTE | 2018-05-12 06:41 | ED ---
HPI General Chief Complaint: Altered Mental Status Stated Complaint: EVAC/Mental Status Time Seen by Provider: 05/12/18 06:32 Source: patient and EMS Mode of arrival: EMS Limitations: no limitations History of Present Illness MD complaint: Reports altered mental status, confusion and weakness; Denies decreased responsiveness and intoxication Onset (ago): hour(s) Timing confirmed by: family member (per EMS report) Severity: moderate Consistency of symptoms: waxing and waning and getting worse Context: Reports recent fever; Denies alcohol abuse, drug abuse, change in medication, history of similar presentation, trauma, diabetes, cancer, liver disease, seizure disorder, COPD and HIV Associated symptoms: Reports weakness and diarrhea; Denies chest pain, cough, diaphoresis, fever, chills, headaches, loss of appetite, malaise, nausea/ vomiting, rash, seizure, shortness of breath, syncope, foul smelling urine, difficulty walking and incontinence Treatments prior to arrival: Denies IV fluid Related Data Home Medications Medication Instructions Recorded Confirmed atorvastatin 10 mg PO DAILY 05/12/18 05/12/18 cholecalciferol (vitamin D3) 2,000 unit PO DAILY 05/12/18 05/12/18 [Vitamin D3] cyanocobalamin (vitamin B-12) 1,000 mcg PO DAILY 05/12/18 05/12/18 [Vitamin B-12] digoxin 0.125 mg PO DAILY 05/12/18 05/12/18 escitalopram oxalate 20 mg PO DAILY 05/12/18 05/12/18 ferrous sulfate [iron] 325 mg PO DAILY 05/12/18 05/12/18 metoprolol succinate 50 mg PO DAILY 05/12/18 05/12/18 montelukast 10 mg PO QPM 05/12/18 05/12/18 peg 400-propylene glycol (PF) 1 drp OPHTHALMIC (EYE) Q4H PRN 05/12/18 05/12/18 [Systane (PF)] potassium chloride 10 meq PO BID 05/12/18 05/12/18 ranitidine HCl 150 mg PO BID 05/12/18 05/12/18 rivaroxaban [Xarelto] 15 mg PO QPM 05/12/18 05/12/18 torsemide 20 mg PO DAILY 05/12/18 05/12/18 verapamil 120 mg PO DAILY 05/12/18 05/12/18 vitamins A,C,F-hazn-hsskwc 2 tab PO BID 05/12/18 05/12/18 [PreserVision AREDS] Allergies Allergy/AdvReac Type Severity Reaction Status Date / Time No Known Drug Allergies Allergy Unknown Verified 12/24/17 10:39 Review of Systems ROS: all other systems reviewed are negative [facility] Medical History Medical History Anemia (Acute) Anxiety (Acute) Atrial fibrillation (Acute) Breast cancer (Acute) CHF (congestive heart failure) (Acute) Depression (Acute) GERD (gastroesophageal reflux disease) (Acute) HTN (hypertension) (Acute) High cholesterol (Acute) History of chemotherapy (Acute) Macular degeneration (Acute) Seasonal allergies (Acute) Surgical History Surgical History H/O cardiac radiofrequency ablation (Acute) H/O hernia repair (Acute) H/O mastectomy (Acute) Hx of cholecystectomy (Acute) Family History Family History Sister History of Parkinson's disease Social History Social History Substance History: No History of Abuse Smoking Status: Never smoker How Often Do You Have a Drink Containing Alcohol: 4 or more times a week Recent Travel in [facility] within the Last 8 Weeks: No Recent Out of Country Travel within the Last 8 Weeks: No Exam Narrative Exam Narrative: GENERAL: Well-nourished, well-developed patient. No acute distress no respiratory distress. SKIN: Focused skin assessment warm/dry. HEAD: Normocephalic. EYES: No scleral icterus. No injection or drainage. NECK: Supple, trachea midline. No JVD or lymphadenopathy. CARDIOVASCULAR: Regular rate and rhythm without murmurs, gallops, or rubs. RESPIRATORY: Breath sounds equal bilaterally. No accessory muscle use. GASTROINTESTINAL: Abdomen soft, non-tender, nondistended. MUSCULOSKELETAL: No cyanosis, or edema. BACK: Nontender without obvious deformity. No CVA tenderness. Course Initial Documented Vital Signs Temperature 98.4 F 05/12/18 06:25 Pulse Rate 88 05/12/18 06:25 Respiratory Rate 22 05/12/18 06:25 Blood Pressure 159/76 H 05/12/18 06:25 Pulse Oximetry 94 L 05/12/18 06:25 Last Documented Vital Signs Temperature 99.0 F 05/12/18 12:16 Pulse Rate 140 H 05/12/18 12:16 Respiratory Rate 31 H 05/12/18 12:16 Blood Pressure 150/116 H 05/12/18 12:16 Pulse Oximetry 94 L 05/12/18 11:33 Sign Out Sign Out Data: Patient Sign Out occurred on 05/12/18 at 08:14. Patient's care was discussed, and care was transferred from Analilia Aguilar MD to Virginia Cowan DO. Sign Out Comment: Care and case signed over to oncoming physician for follow-up of pending labs and disposition Last updated by Analilia Aguilar MD at 05/12/18 07:19 Post-Handoff Eval: 87yo F was brought in by EVAC for evaluation of altered mental status. Labs reviewed, no leukocytosis. H/H normal. BNP is elevated at 670. CMP unremarkable. TSH normal. CT brain showed atrophy and white matter disease. Possible left MCA aneurysm suspected. CTA brain showed no aneurysm. CXR showed increased intersitisl prominence and pulmonary vascular congestion. Right effusion again noted. As per nurse, pt is saturating at 88-89% on RA so is now on 2L NC. Pt said she does feel sob. Pt is AAOx3. However, was talking to people that are not there and may be having visual hallucinations. Lasix ordered. Pt's daughter came now and said that she went to [facility]D for cough and they started her on amoxicillin and thought she may have pneumonia. Said she had diarrhea yesterday. However, this morning started having hallucinations and talking to people who are not there. Discussed with Dr. Sharma and accepted to his service. Medical Decision Making MDM Narrative Medical decision making narrative: 87-year-old female presents to the emergency department from home by EMS transport for evaluation of altered mentation after recent diagnosis of possible pneumonia with watery diarrhea and incontinent of diarrhea. Patient is unaware of why she is in the emergency department. Patient lives with her daughter but daughter is not available at bedside. Last visit in the [facility] system was December 2017 at which time was identified patient has underlying CHF atrial fibrillation Xarelto therapy hypertension and COPD. Patient placed on conveyor monitor IV access obtained specimens collections of resultingStool C. difficile specimen ordered to be collected Medical Screen Exam Complete: Yes Emergency Medical Condition: Yes Differential Diagnosis Differential Diagnosis: Altered mental status, electrolyte disturbance, metabolic encephalopathy, TIA, CVA, sepsis, UTI, colitis Medical Records Medical records reviewed: Yes I reviewed the patient's medical records. Lab Data Result diagrams: 05/12/18 07:15 05/12/18 07:15 Lab Results 05/12/18 05/12/18 05/12/18 Range/Units 07:15 07:15 07:15 CBC w Diff Auto diff final WBC 7.1 (4.0-11.0) th/mm3 RBC 3.62 L (4.00-5.30) mil/mm3 Hgb 12.5 (11.6-15.3) gm/dL Hct 38.2 (35.0-46.0) % MCV 105.5 H (80.0-100.0) fL MCH 34.5 H (27.0-34.0) pg MCHC 32.7 (32.0-36.0) % RDW 13.7 (11.6-17.2) % Plt Count 227 (150-450) th/mm3 MPV 7.9 (7.0-11.0) fL Neut % (Auto) 81.4 H (16.0-70.0) % Lymph % (Auto) 8.2 L (9.0-44.0) % [place] % (Auto) 9.0 H (0.0-8.0) % Eos % (Auto) 0.7 (0.0-4.0) % Baso % (Auto) 0.7 (0.0-2.0) % Neut # (Auto) 5.9 (1.8-7.7) th/mm3 Lymph # (Auto) 0.6 L (1.0-4.8) th/mm3 [place] # (Auto) 0.6 (0.0-0.9) th/mm3 Eos # (Auto) 0.0 (0.0-0.4) th/mm3 Baso # (Auto) 0.0 (0.0-0.2) th/mm3 WBC Differential . Differential Comment . Sodium 143 (136-145) meq/L Potassium 4.2 (3.5-5.1) meq/L Chloride 108 H (98-107) meq/L Carbon Dioxide 27.6 (21.0-32.0) meq/L Anion Gap 7 (5-15) meq/L BUN 17 (7-18) mg/dL Creatinine 0.78 (0.50-1.00) mg/dL Estimated GFR 70 L (>89) mL/min Random Glucose 103 (74-106) mg/dL Calcium 8.4 L (8.5-10.1) mg/dL Magnesium 1.9 (1.5-2.5) mg/dL Total Bilirubin 0.7 (0.2-1.0) mg/dL AST 43 H (15-37) U/L ALT 25 (10-53) U/L Alkaline Phosphatase 104 (45-117) U/L Troponin I 0.02 (0.02-0.05) ng/mL B-Natriuretic Peptide 670 H (0-100) pg/mL Total Protein 6.6 (6.4-8.2) g/dL Albumin 3.5 (3.4-5.0) g/dL TSH 0.861 (0.358-3.740) uIU/mL Ur Collection Type Urine Color (Yellw/Straw) Urine Clarity (Clear) Urine pH (5.0-8.5) Ur Specific [place] (1.002-1.035) Urine Protein (Neg-Trace) mg/dL Urine Glucose (UA) (Negative) mg/dL Urine Ketones (Negative) mg/dL Urine Occult Blood (Negative) Urine Nitrate (Negative) Urine Bilirubin (Negative) Urine Urobilinogen (Less than 2) mg/dL Ur Leukocyte Esterase (Negative) Urine RBC (0-3) /hpf Urine WBC (0-5) /hpf Micro UA Comment Ur Microscopic Review Urine Culture Comments Urine Collection Time hours Digoxin 0.8 (0.8-2.0) ng/mL 05/12/18 Range/Units 09:40 CBC w Diff WBC (4.0-11.0) th/mm3 RBC (4.00-5.30) mil/mm3 Hgb (11.6-15.3) gm/dL Hct (35.0-46.0) % MCV (80.0-100.0) fL MCH (27.0-34.0) pg MCHC (32.0-36.0) % RDW (11.6-17.2) % Plt Count (150-450) th/mm3 MPV (7.0-11.0) fL Neut % (Auto) (16.0-70.0) % Lymph % (Auto) (9.0-44.0) % [place] % (Auto) (0.0-8.0) % Eos % (Auto) (0.0-4.0) % Baso % (Auto) (0.0-2.0) % Neut # (Auto) (1.8-7.7) th/mm3 Lymph # (Auto) (1.0-4.8) th/mm3 [place] # (Auto) (0.0-0.9) th/mm3 Eos # (Auto) (0.0-0.4) th/mm3 Baso # (Auto) (0.0-0.2) th/mm3 WBC Differential Differential Comment Sodium (136-145) meq/L Potassium (3.5-5.1) meq/L Chloride (98-107) meq/L Carbon Dioxide (21.0-32.0) meq/L Anion Gap (5-15) meq/L BUN (7-18) mg/dL Creatinine (0.50-1.00) mg/dL Estimated GFR (>89) mL/min Random Glucose (74-106) mg/dL Calcium (8.5-10.1) mg/dL Magnesium (1.5-2.5) mg/dL Total Bilirubin (0.2-1.0) mg/dL AST (15-37) U/L ALT (10-53) U/L Alkaline Phosphatase (45-117) U/L Troponin I (0.02-0.05) ng/mL B-Natriuretic Peptide (0-100) pg/mL Total Protein (6.4-8.2) g/dL Albumin (3.4-5.0) g/dL TSH (0.358-3.740) uIU/mL Ur Collection Type Cath Urine Color Straw (Yellw/Straw) Urine Clarity Clear (Clear) Urine pH 6.0 (5.0-8.5) Ur Specific [place] 1.010 (1.002-1.035) Urine Protein Negative (Neg-Trace) mg/dL Urine Glucose (UA) Negative (Negative) mg/dL Urine Ketones Negative (Negative) mg/dL Urine Occult Blood Large H (Negative) Urine Nitrate Negative (Negative) Urine Bilirubin Negative (Negative) Urine Urobilinogen 0.2 (Less than 2) mg/dL Ur Leukocyte Esterase Negative (Negative) Urine RBC 15-50 H (0-3) /hpf Urine WBC 0-5 (0-5) /hpf Micro UA Comment Cath-culture not ind Ur Microscopic Review Microscopic reviewed Urine Culture Comments Cath-cult not ind Urine Collection Time 1000 hours Digoxin (0.8-2.0) ng/mL Imaging Data Radiologist's impression: Chest X-Ray 05/12/18 06:32 CONCLUSION: Increased interstitial prominence and pulmonary vascular congestion. Right effusion again noted. Head CT 05/12/18 07:26 CONCLUSION: 1. Atrophy and white matter disease most likely chronic in nature. 2. Possible left MCA aneurysm suspected. This can be further evaluated with MRI of the brain/MRA of the [place]. . Head CTA 05/12/18 08:30 CONCLUSION: 1. No aneurysm. . ECG Data EKG Prior to Arrival: No Attestation: I personally reviewed and interpreted this ECG as follows: Interpretation: Afib at 85bpm. LAD. No significant ST elevation or depression. Discharge Plan Discharge Disposition Patient Disposition: 30 Still Patient Discharge Details Diagnosis: CHF exacerbation Physicians Team ED Provider: Virginia Cowan Primary Care Provider: UNKNOWN, Attending Provider: Mana Sharma Status ED Status: Left Department Discharge Information Discharge Date/Time: 05/12/18 10:55
--- NOTE | 2018-05-12 07:17 | XR ---
EXAM DATE: 05/12/2018 7:12 AM EST AGE/SEX: 87 years / Female INDICATIONS: Short of breath CLINICAL DATA: This is the patient's initial encounter. Patient reports that signs and symptoms have been present for 1 day and indicates a pain score of Nonresponsive. MEDICAL/SURGICAL HISTORY: . CHF, AFIB None. COMPARISON: PO[facility], XR CHEST PA AND LAT, 05/11/2018. . FINDINGS: Surgical clips overlie the left axilla. The patient is status post left mastectomy. Cardiomegaly is n oted. There is mild pulmonary vascular congestion and interstitial prominence. There is a right-sided pleural effusion again seen. CONCLUSION: Increased interstitial prominence and pulmonary vascular congestion. Right effusion again noted. Electronically signed by: Cristopher Burns MD 05/12/2018 7:16 AM EST
[2018-05-12 07:45] LABS: Baso % (Auto) 0.7 % (0.0-2.0); Chloride 108 meq/L (98-107); Eos % (Auto) 0.7 % (0.0-4.0); Hematocrit 38.2 % (35.0-46.0); Hemoglobin 12.5 gm/dL (11.6-15.3); Lymph # (Auto) 0.6 th/mm3 (1.0-4.8); Lymph % (Auto) 8.2 % (9.0-44.0); Mean Corpuscular HGB Conc 32.7 % (32.0-36.0); Mean Corpuscular Hemoglobin 34.5 pg (27.0-34.0); Mean Corpuscular Volume 105.5 fL (80.0-100.0); Mean Platelet Volume 7.9 fL (7.0-11.0); Mono # (Auto) 0.6 th/mm3 (0.0-0.9); Neut # (Auto) 5.9 th/mm3 (1.8-7.7); Neut % (Auto) 81.4 % (16.0-70.0); Platelet Count 227 th/mm3 (150-450); Potassium 4.2 meq/L (3.5-5.1); Red Blood Count 3.62 mil/mm3 (4.00-5.30); Red Cell Distribution Width 13.7 % (11.6-17.2); Sodium 143 meq/L (136-145); White Blood Count 7.1 th/mm3 (4.0-11.0)
[2018-05-12 07:47] LABS: Albumin 3.5 g/dL (3.4-5.0); Anion Gap 7 meq/L (5-15); Calcium 8.4 mg/dL (8.5-10.1); Carbon Dioxide 27.6 meq/L (21.0-32.0); Glucose,Random 103 mg/dL (74-106); Magnesium 1.9 mg/dL (1.5-2.5)
[2018-05-12 07:48] LABS: Blood Urea Nitrogen 17 mg/dL (7-18)
[2018-05-12 07:50] LABS: Alanine Aminotransferase 25 U/L (10-53)
[2018-05-12 07:51] LABS: Aspartate Aminotransferase 43 U/L (15-37); Glomerular Filtration Rate 70 mL/min (>89)
[2018-05-12 07:52] LABS: Total Protein 6.6 g/dL (6.4-8.2)
[2018-05-12 07:53] LABS: Alkaline Phosphatase 104 U/L (45-117)
[2018-05-12 07:56] LABS: Troponin I 0.02 ng/mL (0.02-0.05)
[2018-05-12 08:02] LABS: Thyroid Stimulating Hormone 0.861 uIU/mL (0.358-3.740)
--- NOTE | 2018-05-12 08:06 | CT ---
EXAM DATE: 05/12/2018 8:02 AM EST AGE/SEX: 87 years / Female INDICATIONS: Altered Mental Status, Weakness CLINICAL DATA: This is the patient's initial encounter. Patient reports that signs and symptoms have been present for 1 day and indicates a pain score of 5/10. MEDICAL/SURGICAL HISTORY: None. None. RADIATION DOSE: 49.51 CTDI (mGy) COMPARISON: No prior exams available for comparison. TECHNIQUE: CT of the head without contrast. Using automated exposure control and adjustment of the mA and/or kV according to patient size, radiation dose was kept as low as reasonably achievable to ob tain optimal diagnostic quality images. DICOM format image data is available electronically for revi ew and comparison. FINDINGS: There is mild diffuse volume loss and patchy hypodensity in the bilateral centrum semiovale and periv entricular white matter characteristic of chronic microvascular ischemic disease. There are no signs of intracranial hemorrhage, acute infarction, or mass. No fractures are seen. Findings are suspicious for a 5.2 mm left MCA aneurysm. CONCLUSION: 1. Atrophy and white matter disease most likely chronic in nature. 2. Possible left MCA aneurysm suspected. This can be further evaluated with MRI of the brain/MRA of the [place]. . Electronically signed by: Cristopher Burns MD 05/12/2018 8:04 AM EST
[2018-05-12 08:31] LABS: Digoxin 0.8 ng/mL (0.8-2.0)
[2018-05-12] MEDS ORDERED: Bisacodyl 10 MG Supp RECTAL PRN ×2 (09:54→13:12)
--- NOTE | 2018-05-12 09:57 | ECG ---
Date Performed: 05/12/2018 Time Performed: 06:55:15 PTAGE: 87 years EKG: ATRIAL FIBRILLATION MARKED LEFT AXIS DEVIATION INCOMPLETE RIGHT BUNDLE BRANCH BLOCK ABNORMA L ECG No significant change from prior electrocardiogram. PREVIOUS TRACING : 12/24/2017 10.41 DOCTOR: Myke Berry Interpretating Date/Time 05/12/2018 09:56:35
[2018-05-12] MEDS ORDERED: Enoxaparin Inj 40 MG/0.4 ML Syringe SQ SCH (10:00)
[2018-05-12 10:15] LABS: Bilirubin,Urine Negative (Negative); Clarity,Urine Clear (Clear); Glucose,Urine (UA) Negative (Negative); Leukocyte Esterase,Urine Negative (Negative); Nitrite,Urine Negative (Negative); Urobilinogen,Urine 0.2 mg/dL (Less than 2)
[2018-05-12 10:18] LABS: Color,Urine Straw (Yellw/Straw)
[2018-05-12 10:20] LABS: WBC,Urine 0-5 /hpf (0-5)
--- NOTE | 2018-05-12 11:16 | CT ---
EXAM DATE: 05/12/2018 11:10 AM EST AGE/SEX: 87 years / Female INDICATIONS: Aneurysm CLINICAL DATA: This is the patient's initial encounter. Patient reports that signs and symptoms have been present for 1 day and indicates a pain score of 5/10. MEDICAL/SURGICAL HISTORY: Carcinoma, breast. Congestive heart failure. Gastroesophageal reflux di sease. Hypertension, Atrial Fibrillation Mastectomy, left. Cholecystectomy. Hernia repair RADIATION DOSE: 43.10 CTDI (mGy) COMPARISON: [facility], CT HEAD W/O CONTRAST, 05/12/2018. . TECHNIQUE: Volumetric scanning was performed using a multi-row detector CT scanner during bolus infu addi of 74ML ml Omnipaque 350 (iohexol) nonionic water-soluble contrast as a single exam dose. The data was post processed with a variety of visualization algorithms including full volume maximum int ensity projection, multi-planar sliding thin slab reformation, curved planar reformation, and surface rendering techniques. Using automated exposure control and adjustment of the mA and/or kV according to patient size, radiation dose was kept as low as reasonably achievable to obtain optimal diagnosti c quality images. DICOM format image data is available electronically for review and comparison. FINDINGS: There is excellent visualization of the major intracranial arteries out to the second-order branch ve ssels. There is no evidence for aneurysm, vessel truncation or stenosis, and no evidence for vascula r malformation. Additional findings include heterogeneous multinodular thyroid, bilateral pleural eff usions and patchy atelectatic changes in the lungs. CONCLUSION: 1. No aneurysm. . Electronically signed by: Cristopher Burns MD 05/12/2018 11:14 AM EST
--- NOTE | 2018-05-12 13:10 | P.HP ---
History of Present Illness Primary Care Physician: UNKNOWN Chief Complaint: Altered mental status History of Present Illness: 87-year-old female with known history of atrial fibrillation, congestive heart failure, history of breast cancer, history of pleural effusion who presented to the hospital because of altered mental status. The patient over the last week he has had worsening upper respiratory symptoms with cough, clear phlegm production. Is indicated that she contacted her primary medical doctor in which started her on antibiotic to include amoxicillin for possible underlying pneumonia. Patient did not improve on the antibiotics and when her daughter went to visit her today it appeared as if she has some altered mentation with talking to people who were not there. Calling out police. Patient's daughter says that she does this periodically but they can usually get her back into reality. However they could not do that today so they brought her to the hospital for evaluation. The daughter indicates that they think that she may have some underlying dementia but is never been diagnosed. They also indicate that the patient took 3 of the amoxicillin tablets today as compared to normal dose. they deny any fever, chills, change in medication. Patient indicates that she did fall 1 week ago. Patient had workup done emergency department with CT of the head, chest x-ray and there was no intracranial abnormalities. They did find increased interstitial prominence and pulmonary vascular congestion with right sided effusion. Further laboratory studies indicate BNP of 670, on the patient's last admission for CHF her BNP was 1472. The patient does admit to shortness of breath, cough. Denies any dyspnea on exertion, orthopnea, paroxysmal nocturnal dyspnea. Patient was given Lasix 40 mg IV with substantial urinary output of 1100 cc. He is recommended by the ER physician that the patient be admitted for congestive heart failure exacerbation. - Diagnosis (1) Altered mental status (2) CHF exacerbation Inpatient Certification: I certify that the inpatient services were ordered in accordance with Medicare regulations governing the order. This includes certification that hospital inpatient services are reasonable and necessary and in the case of services not specified as inpatient-only under 42 CFR 419.22(n), that they are appropriately provided as inpatient services in accordance to with the 2-midnight benchmark under 43 CFR 412.3(e) Estimated Total Length of Stay (Days): 3 Plans for Post Hospital Care: Not yet determined Review of Systems All other systems reviewed negative except as stated in HPI Respiratory: Reports cough, Reports shortness of breath Psychiatric: Reports behavioral changes PMFSH - History History Provided By: Patient, Plumber Cub / EMT - Medical History Medical History: Medical History (Last Updated 05/12/18 @ 09:18 by Silvia Hill RN) Anemia Anxiety Atrial fibrillation Breast cancer CHF (congestive heart failure) Depression GERD (gastroesophageal reflux disease) HTN (hypertension) High cholesterol History of chemotherapy Macular degeneration Seasonal allergies - Surgical History Surgical History: Surgical History (Last Updated 05/12/18 @ 09:18 by Silvia Hill RN) H/O cardiac radiofrequency ablation H/O hernia repair H/O mastectomy Hx of cholecystectomy - Family History Family History: Family History (Last Updated 05/12/18 @ 13:04 by KINA Bush) Sister History of Parkinson's disease - Tobacco History Smoking Status: Never smoker - Alcohol History How Often Do You Have a Drink Containing Alcohol: 4 or more times a week - Substance Use History Substance History: No History of Abuse - Travel History Recent Travel in the [place] Within the Last 8 Weeks: No Recent Travel Out of the Country Within the Last 8 Weeks: No - Immunization History Tetanus Immunization: <5 Years Medications and Allergies Active Medications: Active Medications Acetaminophen (Tylenol) 650 mg PO Q4H PRN PRN Reason: Headache, fever, pain 1-4 Al Hydroxide/Mg Hydroxide (Milk Of Magnesia Liq) 30 ml PO Q12H PRN PRN Reason: Mild Constipation Bisacodyl (Dulcolax Supp) 10 mg RECTAL DAILY PRN PRN Reason: SEVERE CONSITIPATION Lactulose (Lactulose Liq) 30 ml PO DAILY PRN PRN Reason: SEVERE CONSITIPATION Ondansetron HCl (Zofran Inj) 4 mg IV.PUSH Q6H PRN PRN Reason: NAUSEA OR VOMITING Sennosides (Senokot) 17.2 mg PO Q12H PRN PRN Reason: Moderate Constipation Sodium Chloride (Ns Flush) 2 ml IV.FLUSH PRN PRN PRN Reason: FLUSH AFTER USING IV ACCESS Allergies Allergy/AdvReac Type Severity Reaction Status Date / Time No Known Drug Allergies Allergy Unknown Verified 12/24/17 10:39 Home Medications Medication Instructions Recorded Confirmed Type atorvastatin 10 mg PO DAILY 05/12/18 05/12/18 History cholecalciferol (vitamin D3) 2,000 unit PO DAILY 05/12/18 05/12/18 History [Vitamin D3] cyanocobalamin (vitamin B-12) 1,000 mcg PO DAILY 05/12/18 05/12/18 History [Vitamin B-12] digoxin 0.125 mg PO DAILY 05/12/18 05/12/18 History escitalopram oxalate 20 mg PO DAILY 05/12/18 05/12/18 History ferrous sulfate [iron] 325 mg PO DAILY 05/12/18 05/12/18 History metoprolol succinate 50 mg PO DAILY 05/12/18 05/12/18 History montelukast 10 mg PO QPM 05/12/18 05/12/18 History peg 400-propylene glycol (PF) 1 drp OPHTHALMIC (EYE) Q4H PRN 05/12/18 05/12/18 History [Systane (PF)] potassium chloride 10 meq PO BID 05/12/18 05/12/18 History ranitidine HCl 150 mg PO BID 05/12/18 05/12/18 History rivaroxaban [Xarelto] 15 mg PO QPM 05/12/18 05/12/18 History torsemide 20 mg PO DAILY 05/12/18 05/12/18 History verapamil 120 mg PO DAILY 05/12/18 05/12/18 History vitamins A,C,[id number] 2 tab PO BID 05/12/18 05/12/18 History [PreserVision AREDS] Exam Vital signs: Vital Signs 05/12/18 06:25 05/12/18 07:00 05/12/18 07:15 Temperature 98.4 F Pulse Rate 88 88 Respiratory Rate 22 Blood Pressure 159/76 H Pulse Oximetry 94 L 97 97 05/12/18 08:00 05/12/18 09:08 05/12/18 10:10 Temperature Pulse Rate 89 96 H 86 Respiratory Rate 18 19 18 Blood Pressure 178/98 H 163/89 H 171/92 H Pulse Oximetry 97 96 97 05/12/18 11:21 05/12/18 11:33 05/12/18 12:00 Temperature Pulse Rate 88 174 H Respiratory Rate 29 H 29 H Blood Pressure 130/86 Pulse Oximetry 94 L 05/12/18 12:15 05/12/18 12:16 Temperature 99.0 F Pulse Rate 180 H 140 H Respiratory Rate 31 H 31 H Blood Pressure 140/100 H 150/116 H Pulse Oximetry Intake & Output 05/11/18 05/12/18 05/12/18 18:59 06:59 18:59 Output Total 1099 / 1099 Balance -1100 / -1100 Weight 56.2 kg Output: Urine Amount (Catheter) 1099 Indwelling Urethral Catheter 1099 Narrative: GENERAL: Well-developed, cachectic, in no acute distress. alert and orientated HEENT: Head is normocephalic without any lesions or masses noted. Facial features are symmetric. Eyes: Pupils equal round reactive to light. Extraocular muscles are intact. Conjunctivae were clear. Oropharyngeal: Pharynx without any erythema edema. Tongue is midline without deviation. Buccal mucosa is moist without any masses or lesions NECK: Supple without any masses. Trachea midline no deviation. No JVD, no bruits are appreciated CARDIAC: Regular rhythm, regular rate. S1/S2 are heard. No murmurs gallops or rubs. LUNGS: Clear to auscultation bilaterally. No wheeze, rhonchi or rales. No use of accessory muscles on inspiration or expiration. ABDOMEN: Soft, nontender. Nondistended. Bowel sounds heard in all 4 quadrants. No organomegaly or masses. Negative rebound, negative guarding EXTREMITIES: No edema, pulses are equal bilaterally. No cyanosis or clubbing NEUROLOGY: Mood and affect appear appropriate. Cranial nerves II through XII grossly intact. Muscle strength 5/5 in upper and lower extremities bilaterally. Deep tendon reflexes are 2+ in upper and lower extremities bilaterally. Results - Labs CBC & Chem 7: 05/12/18 07:15 05/12/18 07:15 Labs: Laboratory Results - last 24 hr 05/12/18 05/12/18 05/12/18 07:15 07:15 07:15 CBC w Diff Auto diff final WBC 7.1 RBC 3.62 L Hgb 12.5 Hct 38.2 MCV 105.5 H MCH 34.5 H MCHC 32.7 RDW 13.7 Plt Count 227 MPV 7.9 Neut % (Auto) 81.4 H Lymph % (Auto) 8.2 L [place] % (Auto) 9.0 H Eos % (Auto) 0.7 Baso % (Auto) 0.7 Neut # (Auto) 5.9 Lymph # (Auto) 0.6 L [place] # (Auto) 0.6 Eos # (Auto) 0.0 Baso # (Auto) 0.0 WBC Differential . Differential Comment . Sodium 143 Potassium 4.2 Chloride 108 H Carbon Dioxide 27.6 Anion Gap 7 BUN 17 Creatinine 0.78 Estimated GFR 70 L Random Glucose 103 Calcium 8.4 L Magnesium 1.9 Total Bilirubin 0.7 AST 43 H ALT 25 Alkaline Phosphatase 104 Troponin I 0.02 B-Natriuretic Peptide 670 H Total Protein 6.6 Albumin 3.5 TSH 0.861 Ur Collection Type Urine Color Urine Clarity Urine pH Ur Specific [place] Urine Protein Urine Glucose (UA) Urine Ketones Urine Occult Blood Urine Nitrate Urine Bilirubin Urine Urobilinogen Ur Leukocyte Esterase Urine RBC Urine WBC Micro UA Comment Ur Microscopic Review Urine Culture Comments Urine Collection Time Digoxin 0.8 05/12/18 09:40 CBC w Diff WBC RBC Hgb Hct MCV MCH MCHC RDW Plt Count MPV Neut % (Auto) Lymph % (Auto) [place] % (Auto) Eos % (Auto) Baso % (Auto) Neut # (Auto) Lymph # (Auto) [place] # (Auto) Eos # (Auto) Baso # (Auto) WBC Differential Differential Comment Sodium Potassium Chloride Carbon Dioxide Anion Gap BUN Creatinine Estimated GFR Random Glucose Calcium Magnesium Total Bilirubin AST ALT Alkaline Phosphatase Troponin I B-Natriuretic Peptide Total Protein Albumin TSH Ur Collection Type Cath Urine Color Straw Urine Clarity Clear Urine pH 6.0 Ur Specific [place] 1.010 Urine Protein Negative Urine Glucose (UA) Negative Urine Ketones Negative Urine Occult Blood Large H Urine Nitrate Negative Urine Bilirubin Negative Urine Urobilinogen 0.2 Ur Leukocyte Esterase Negative Urine RBC 15-50 H Urine WBC 0-5 Micro UA Comment Cath-culture not ind Ur Microscopic Review Microscopic reviewed Urine Culture Comments Cath-cult not ind Urine Collection Time 1000 Digoxin - Imaging Impressions Chest X-Ray 05/12/18 06:32 CONCLUSION: Increased interstitial prominence and pulmonary vascular congestion. Right effusion again noted. Head CT 05/12/18 07:26 CONCLUSION: 1. Atrophy and white matter disease most likely chronic in nature. 2. Possible left MCA aneurysm suspected. This can be further evaluated with MRI of the brain/MRA of the [place]. . Head CTA 05/12/18 08:30 CONCLUSION: 1. No aneurysm. . Caprini VTE Risk Assessment Caprini VTE Risk Assessment: Moderate/High Risk (score >= 2) Caprini Risk Assessment Model: Point Value = 1 Point Value = 2 Point Value = 3 Point Value = 5 Age 41-60 Minor surgery BMI > 25 kg/m2 Swollen legs Varicose veins or History of unexplained or recurrent spontaneous Oral contraceptives or hormone replacement Sepsis (< 1 month) Serious lung disease, including pneumonia (< 1 month) Abnormal pulmonary function Acute myocardial infarction Congestive heart failure (< 1 month) History of inflammatory bowel disease Medical patient at bed rest Age 61-74 Arthroscopic surgery Major open surgery (> 45 min) Laparoscopic surgery (> 45 min) Malignancy Confined to bed (> 72 hours) Immobilizing plaster cast Central venous access Age >= 75 History of VTE Family history of VTE Factor V Leiden Prothrombin [id number] Lupus anticoagulant Anticardiolipin antibodies Elevated serum homocysteine Heparin-induced thrombocytopenia Other congenital or acquired thrombophilia Stroke (< 1 month) Elective arthroplasty Hip, pelvis, or leg fracture Acute spinal cord injury (< 1 month) Prophylaxis Regimen: Total Risk Factor Score Risk Level Prophylaxis Regimen 0-1 Low Early ambulation 2 Moderate Order ONE of the following: *Sequential Compression Device (SCD) *Heparin 5000 units SQ BID 3-4 Higher Order ONE of the following medications: *Heparin 5000 units SQ TID *Enoxaparin/Lovenox 40 mg SQ daily (WT < 150 kg, CrCl > 30 mL/min) *Enoxaparin/Lovenox 30 mg SQ daily (WT < 150 kg, CrCl > 10-29 mL/min) *Enoxaparin/Lovenox 30 mg SQ BID (WT < 150 kg, CrCl > 30 mL/min) AND/OR *Sequential Compression Device (SCD) 5 or more Highest Order ONE of the following medications: *Heparin 5000 units SQ TID (Preferred with Epidurals) *Enoxaparin/Lovenox 40 mg SQ daily (WT < 150 kg, CrCl > 30 mL/min) *Enoxaparin/Lovenox 30 mg SQ daily (WT < 150 kg, CrCl > 10-29 mL/min) *Enoxaparin/Lovenox 30 mg SQ BID (WT < 150 kg, CrCl > 30 mL/min) AND *Sequential Compression Device (SCD) Assessment and Plan - Assessment (1) Altered mental status Code(s): R41.82 - Altered mental status, unspecified Status: Acute (2) CHF exacerbation Code(s): I50.9 - Heart failure, unspecified Status: Acute - Plan Congestive heart failure exacerbation, unknown whether diastolic or systolic -Patient responded overly well to the single dose of Lasix 40 mg IV -Continue home diuresis -Strict input and output -Obtain echocardiogram -Fluid restriction Altered mental status, with visual hallucination: Recurrent -Daughters indicate that at this does happen frequently, however they are usually able to get her back into reality. However this time it took longer and they were unsuccessful. Patient is back at baseline upon examination today -CT scan of the head did not indicate any acute abnormality -CTA of the brain did not indicate any acute abnormality -We will obtain further studies with sed rate, B12, folate, RPR -This could also be related to chronic daily alcohol use. We will continue monitor for any withdrawal symptoms, -start thiamine and folic acid Chronic atrial fibrillation -Home medications will be continued for rate control -Continue Xarelto for anticoagulation DVT prevention -Patient is on Xarelto
[2018-05-12 14:13] LABS: Troponin I 0.03 ng/mL (0.02-0.05)
--- NOTE | 2018-05-12 14:15 | ECG ---
Date Performed: 05/12/2018 Time Performed: 12:52:13 PTAGE: 87 years EKG: ATRIAL FIBRILLATION MARKED LEFT AXIS DEVIATION INCOMPLETE RIGHT BUNDLE BRANCH BLOCK Nonspec ific ST and T wave abnormalities ABNORMAL ECG No significant change from prior electrocardiogram. PREVIOUS TRACING : 05/12/2018 06.55 DOCTOR: Myke Berry Interpretating Date/Time 05/12/2018 14:14:40
[2018-05-12] MEDS: Folic Acid 1 MG Tablet PO SCH (15:17)
[2018-05-12] MEDS: Digoxin 125 MCG Tablet PO SCH (15:17)
[2018-05-12 16:22] LABS: Vitamin B12 1364 pg/mL (193-986)
[2018-05-12] MEDS ORDERED: Senna/Docusate Sodium 8.6/50 MG Tablet PO SCH (21:00)
--- NOTE | 2018-05-12 21:08 | ECG ---
Date Performed: 05/12/2018 Time Performed: 19:29:26 PTAGE: 87 years EKG: ATRIAL FIBRILLATION INDETERMINATE AXIS NONSPECIFIC T-WAVE ABNORMALITY ABNORMAL ECG No signi ficant change from prior electrocardiogram. PREVIOUS TRACING : 05/12/2018 12.52 DOCTOR: Myke Berry Interpretating Date/Time 05/12/2018 21:08:32
[2018-05-13] MEDS: Rivaroxaban 15 MG Tablet PO SCH ×2 (00:24→18:20)
[2018-05-13 05:51] LABS: Hematocrit 38.5 % (35.0-46.0); Hemoglobin 12.7 gm/dL (11.6-15.3); Mean Corpuscular HGB Conc 33.1 % (32.0-36.0); Mean Corpuscular Hemoglobin 34.5 pg (27.0-34.0); Mean Corpuscular Volume 104.4 fL (80.0-100.0); Mean Platelet Volume 7.5 fL (7.0-11.0); Platelet Count 213 th/mm3 (150-450); Red Blood Count 3.69 mil/mm3 (4.00-5.30); Red Cell Distribution Width 13.2 % (11.6-17.2); White Blood Count 7.3 th/mm3 (4.0-11.0)
[2018-05-13 06:14] LABS: Carbon Dioxide 29.8 meq/L (21.0-32.0); Potassium 3.3 meq/L (3.5-5.1)
[2018-05-13 06:59] LABS: Digoxin 0.8 ng/mL (0.8-2.0)
[2018-05-13] MEDS: Folic Acid 1 MG Tablet PO SCH (08:23)
[2018-05-13] MEDS: Digoxin 125 MCG Tablet PO SCH (08:23)
[2018-05-13] MEDS: Torsemide 20 MG Tablet PO SCH (09:07)
[2018-05-13] MEDS: Acetaminophen 325 MG Tablet PO PRN (11:22)
--- NOTE | 2018-05-13 13:17 | P.PNIM ---
Subjective Interval history: 87-year-old female who is seen and examined today to follow-up on congestive heart failure. In reference to the patient's CHF she is doing much better. However since the patient does have some underlying dementia and in a strange environment she has had increased change in mentation. She has been getting very anxious, wandering out of the room getting upset causing significant tachycardia. Patient remains afebrile Physical Exam Vital signs: Vital Signs 05/12/18 13:14 05/12/18 13:16 05/12/18 13:18 Temperature Pulse Rate 104 H 108 H 100 H Respiratory Rate 28 H 26 H 26 H Blood Pressure Pulse Oximetry 05/12/18 13:20 05/12/18 13:22 05/12/18 13:24 Temperature Pulse Rate 98 H 114 H 106 H Respiratory Rate 25 H 25 H 25 H Blood Pressure Pulse Oximetry 05/12/18 13:26 05/12/18 13:28 05/12/18 13:30 Temperature Pulse Rate 120 H 106 H 110 H Respiratory Rate 26 H 25 H 27 H Blood Pressure Pulse Oximetry 05/12/18 13:32 05/12/18 13:34 05/12/18 13:36 Temperature Pulse Rate 118 H 180 H 176 H Respiratory Rate 28 H 28 H 30 H Blood Pressure Pulse Oximetry 05/12/18 13:38 05/12/18 13:40 05/12/18 13:42 Temperature Pulse Rate 176 H 110 H 112 H Respiratory Rate 26 H 31 H 25 H Blood Pressure Pulse Oximetry 05/12/18 13:44 05/12/18 13:46 05/12/18 13:48 Temperature Pulse Rate 108 H 102 H 174 H Respiratory Rate 26 H 25 H 31 H Blood Pressure Pulse Oximetry 05/12/18 13:50 05/12/18 13:52 05/12/18 13:54 Temperature Pulse Rate 180 H 178 H 180 H Respiratory Rate 32 H 33 H 33 H Blood Pressure Pulse Oximetry 05/12/18 13:56 05/12/18 13:58 05/12/18 14:00 Temperature Pulse Rate 126 H 132 H 112 H Respiratory Rate 27 H 31 H 31 H Blood Pressure Pulse Oximetry 05/12/18 14:02 05/12/18 14:04 05/12/18 15:00 Temperature Pulse Rate 116 H 94 H 92 H Respiratory Rate 33 H 30 H 28 H Blood Pressure Pulse Oximetry 05/12/18 15:25 05/12/18 16:00 05/12/18 16:36 Temperature 98.6 F Pulse Rate 96 H 146 H 110 H Respiratory Rate 31 H 30 H 34 H Blood Pressure 156/83 H 157/85 H Pulse Oximetry 84 L 93 L 90 L 05/12/18 18:16 05/12/18 19:00 05/12/18 19:32 Temperature 98.1 F Pulse Rate 126 H 88 Respiratory Rate 20 26 H Blood Pressure 133/79 150/66 H Pulse Oximetry 94 L 93 L 05/12/18 19:35 05/12/18 20:00 05/12/18 20:15 Temperature 98.4 F Pulse Rate 84 86 Respiratory Rate 26 H 35 H Blood Pressure 132/71 142/70 H Pulse Oximetry 93 L 90 L 92 L 05/12/18 20:59 05/12/18 21:00 05/12/18 21:59 Temperature 98.3 F Pulse Rate 90 92 H 104 H Respiratory Rate 28 H 27 H 28 H Blood Pressure 142/74 H 142/74 H 147/106 H Pulse Oximetry 96 05/12/18 22:00 05/12/18 22:03 05/12/18 22:59 Temperature 98.2 F Pulse Rate 100 H 92 H 100 H Respiratory Rate 27 H 30 H 32 H Blood Pressure 147/106 H 145/75 H 128/94 H Pulse Oximetry 96 05/12/18 23:00 05/12/18 23:58 05/13/18 00:00 Temperature 98.2 F 98.2 F Pulse Rate 102 H 160 H 106 H Respiratory Rate 33 H 32 H 35 H Blood Pressure 128/94 H 133/78 133/78 Pulse Oximetry 94 L 94 L 05/13/18 00:57 05/13/18 01:00 05/13/18 02:00 Temperature Pulse Rate 100 H 94 H 100 H Respiratory Rate 35 H 39 H 40 H Blood Pressure 140/75 Pulse Oximetry 05/13/18 02:57 05/13/18 03:00 05/13/18 03:42 Temperature Pulse Rate 94 H 94 H 98 H Respiratory Rate 33 H 30 H 27 H Blood Pressure 140/77 152/77 H Pulse Oximetry 96 97 90 L 05/13/18 04:00 05/13/18 04:57 05/13/18 05:00 Temperature 98.2 F Pulse Rate 94 H 102 H 116 H Respiratory Rate 33 H 34 H 32 H Blood Pressure 152/77 H 140/106 H Pulse Oximetry 87 L 94 L 93 L 05/13/18 05:20 05/13/18 06:00 05/13/18 06:57 Temperature Pulse Rate 96 H 98 H 116 H Respiratory Rate 32 H 29 H 27 H Blood Pressure 156/79 H 142/107 H Pulse Oximetry 85 L 94 L 95 05/13/18 07:00 05/13/18 07:35 05/13/18 07:50 Temperature Pulse Rate 122 H 174 H Respiratory Rate 29 H 34 H Blood Pressure 145/82 H Pulse Oximetry 89 L 98 87 L 05/13/18 07:55 05/13/18 08:00 05/13/18 08:57 Temperature 98.0 F Pulse Rate 114 H 98 H Respiratory Rate 30 H 32 H Blood Pressure 145/82 H 123/76 Pulse Oximetry 95 94 L 97 05/13/18 09:00 05/13/18 10:00 05/13/18 10:12 Temperature Pulse Rate 110 H 94 H 174 H Respiratory Rate 30 H 28 H 42 H Blood Pressure 150/98 H Pulse Oximetry 94 L 95 95 05/13/18 10:30 05/13/18 10:57 05/13/18 11:00 Temperature 98.2 F Pulse Rate 94 H 98 H Respiratory Rate 29 H 38 H Blood Pressure 152/76 H 152/76 H Pulse Oximetry 98 96 97 05/13/18 12:00 Temperature Pulse Rate 90 Respiratory Rate 29 H Blood Pressure Pulse Oximetry 98 Intake & Output 05/12/18 05/13/18 05/13/18 18:59 06:59 18:59 Intake Total 140 / 140 120 / 120 Output Total 4100 / 4100 400 / 400 Balance -4100 / -4100 -260 / -260 120 / 120 Weight 56.2 kg Intake: Oral 140 / 140 120 / 120 Output: Urine Amount (Catheter) 4100 / 4100 400 / 400 3000 3000 / 3000 400 / 400 Indwelling Urethral Catheter 1100 / 1100 Narrative: GENERAL: Well-developed, cachectic, in no acute distress. alert and orientated HEENT: Head is normocephalic without any lesions or masses noted. Facial features are symmetric. Eyes: Extraocular muscles are intact. Conjunctivae were clear. NECK: Supple without any masses. Trachea midline no deviation. No JVD, CARDIAC: Irregular rhythm, irregular rate. S1/S2 are heard. No murmurs gallops or rubs. LUNGS: Clear to auscultation bilaterally. No wheeze, rhonchi or rales. No use of accessory muscles on inspiration or expiration. ABDOMEN: Soft, nontender. Nondistended. Bowel sounds heard in all 4 quadrants. No organomegaly or masses. Negative rebound, negative guarding EXTREMITIES: No edema, pulses are equal bilaterally. No cyanosis or clubbing NEUROLOGY: Patient appears to be very anxious and affect appear appropriate. Cranial nerves II through XII grossly intact. Moving all extremities, speech is clear - Urinary Catheter Management Indwelling Urethral Catheter Cath placed during this visit: yes, but has since been removed by the nurse Reason for continuing: Decision to DC catheter Insertion date: 05/12/18 Insertion time: 10:00 Removal date: 05/13/18 Removal time: 13:09 3000 Cath placed during this visit: yes, but has since been removed by the nurse Reason for continuing: Decision to DC catheter Removal date: 05/13/18 Removal time: 13:10 Results - Labs CBC & Chem 7: 05/13/18 05:38 05/13/18 05:38 Laboratory Results - last 24 hr 05/12/18 05/12/18 05/12/18 13:40 13:40 13:40 WBC RBC Hgb Hct MCV MCH MCHC RDW Plt Count MPV ESR Sodium Potassium Chloride Carbon Dioxide Anion Gap BUN Creatinine Estimated GFR POC Glucose Random Glucose Calcium Ammonia 14 Total Creatine Kinase 139 Cancelled Troponin I 0.03 Cancelled Vitamin B12 1364 H Folate Greater than 20.0 H Digoxin 05/12/18 05/13/18 05/13/18 13:40 05:38 05:38 WBC 7.3 RBC 3.69 L Hgb 12.7 Hct 38.5 MCV 104.4 H MCH 34.5 H MCHC 33.1 RDW 13.2 Plt Count 213 MPV 7.5 ESR 5 Sodium 147 H Potassium 3.3 L D Chloride 106 Carbon Dioxide 29.8 Anion Gap 11 BUN 13 Creatinine 0.69 Estimated GFR 80 L POC Glucose Random Glucose 102 Calcium 8.0 L Ammonia Total Creatine Kinase Troponin I Vitamin B12 Folate Digoxin 0.8 05/13/18 08:16 WBC RBC Hgb Hct MCV MCH MCHC RDW Plt Count MPV ESR Sodium Potassium Chloride Carbon Dioxide Anion Gap BUN Creatinine Estimated GFR POC Glucose 92 Random Glucose Calcium Ammonia Total Creatine Kinase Troponin I Vitamin B12 Folate Digoxin Assessment and Plan - Assessment (1) Altered mental status Code(s): R41.82 - Altered mental status, unspecified Status: Acute (2) CHF exacerbation Code(s): I50.9 - Heart failure, unspecified Status: Acute - Plan Congestive heart failure exacerbation, unknown whether diastolic or systolic, compensated -Patient responded overly well to the single dose of Lasix 40 mg IV -Continue home diuresis -Strict input and output -Awaiting echocardiogram -Fluid restriction Altered mental status, with visual hallucination, possible alcohol delirium: Recurrent -Daughters indicate that at this does happen frequently, however they are usually able to get her back into reality. However this time it took longer and they were unsuccessful. Patient is back at baseline upon examination today -CT scan of the head did not indicate any acute abnormality -CTA of the brain did not indicate any acute abnormality -Further studies to include sed rate, B12, folate, RPR were unremarkable -This could also be related to chronic daily alcohol use. We will continue monitor for any withdrawal symptoms, -Continue thiamine and folic acid Chronic atrial fibrillation -Home medications will be continued for rate control -Continue Xarelto for anticoagulation -Patient been having episodes of heart rate going up to 180. Patient was given Cardizem 10 mg IV x1 without any improvement. Patient was given Ativan 0.25 mg with significant improvement with heart rate going back down to 80-100. DVT prevention -Patient is on Xarelto
[2018-05-13] MEDS ORDERED: Haloperidol Inj 5 MG/ML Ampul IV.PUSH PRN (15:05)
--- NOTE | 2018-05-13 17:39 | ECHRPT ---
Indication: heart failure CONCLUSIONS Mildly dilated left ventricle. Wall thickness is normal. The left ventricular systolic function is kiphnbbx-pv-lypfamx reduced with an estimated ejection fra ction in the range of 35-40%. There is global left ventricular dysfunction. The left atrial size is moderately dilated. The right atrial size is moderately dilated. Mild thickening of the mitral valve leaflets. Yvvusnnn-sw-cypfwx mitral valve regurgitation. Aortic valve sclerosis is present. Moderate aortic valve regurgitation. Mild thickening of the tricuspid valve leaflets. There is moderate to severe tricuspid valve regurgitation. The estimated pulmonary arterial pressure is 78 mmHg. BP: / HR: Rhythm: Atrial fibrillation MEASUREMENTS (Male / Female) Normal Values Technical Quality:Good 2D ECHO LV Diastolic Diameter PLAX 4.5 cm 4.2 - 5.9 / 3.9 - 5.3 cm LV Systolic Diameter PLAX 4.0 cm IVS Diastolic Thickness 0.7 cm 0.6 - 1.0 / 0.6 - 0.9 cm LVPW Diastolic Thickness 0.8 cm 0.6 - 1.0 / 0.6 - 0.9 cm LV Relative Wall Thickness 0.3 LVOT Diameter 2.0 cm LA Systolic Diameter LX 3.3 cm 3.0 - 4.0 / 2.7 - 3.8 cm LV Ejection Fraction MOD 4C 25.3 % LV Ejection Fraction 4C AL 26.5 % M-MODE Aortic Root Diameter MM 2.2 cm LA Systolic Diameter MM 3.6 cm LA Ao Ratio MM 1.6 AV Cusp Separation MM 1.5 cm DOPPLER AV Peak Velocity 122.0 cm/s AV Peak Gradient 6.0 mmHg AI Peak Velocity 543.0 cm/s AI Peak Gradient 117.9 mmHg AI Pressure Half Time 263.0 ms LVOT Peak Velocity 72.6 cm/s LVOT Peak Gradient 2.1 mmHg AV Area Cont Eq pk 1.9 cm MV Area PHT 5.6 cm Mitral E Point Velocity 102.0 cm/s Mitral A Point Velocity 45.4 cm/s Mitral E to A Ratio 2.2 LV E' Lateral Velocity 7.1 cm/s Mitral E to LV E' Lateral Ratio 14.3 LV E' Septal Velocity 4.3 cm/s Mitral E to LV E' Septal Ratio 23.8 TR Peak Velocity 411.0 cm/s TR Peak Gradient 67.6 mmHg Right Atrial Pressure 10.0 mmHg Pulmonary Artery Systolic Pressu 77.6 mmHg Right Ventricular Systolic Press 77.6 mmHg PV Peak Velocity 63.8 cm/s PV Peak Gradient 1.6 mmHg FINDINGS LEFT VENTRICLE Mildly dilated left ventricle. Wall thickness is normal. The left ventricular systolic function is lpdmknst-ak-smrzqje reduced with an estimated ejection fra ction in the range of 35-40%. There is global left ventricular dysfunction. RIGHT VENTRICLE Normal right ventricular size and systolic function. LEFT ATRIUM The left atrial size is moderately dilated. RIGHT ATRIUM The right atrial size is moderately dilated. ATRIAL SEPTUM Normal atrial septal thickness without atrial level shunting by limited color doppler interrogation. AORTA The aortic root and proximal ascending aorta are normal in size on limited imaging. MITRAL VALVE Mild thickening of the mitral valve leaflets. Ngyapptj-oz-dqorvc mitral valve regurgitation. AORTIC VALVE Trileaflet aortic valve. Aortic valve sclerosis is present. Moderate aortic valve regurgitation. TRICUSPID VALVE Mild thickening of the tricuspid valve leaflets. There is moderate to severe tricuspid valve regurgitation. The estimated pulmonary arterial pressure is 78 mmHg. PULMONARY VALVE No pulmonary valve regurgitation or stenosis. VESSELS The inferior vena cava is normal in size. PERICARDIUM No pericardial effusion. Ronald Mckeon MD, FACC (Electronically Signed) Final Date:13 May 2018 17:38
[2018-05-14] MEDS: Digoxin 125 MCG Tablet PO SCH (08:12)
[2018-05-14] MEDS: Folic Acid 1 MG Tablet PO SCH (08:12)
[2018-05-14] MEDS: Torsemide 20 MG Tablet PO SCH (08:12)
[2018-05-14] MEDS: Acetaminophen 325 MG Tablet PO PRN ×2 (08:37→13:21)
--- NOTE | 2018-05-14 11:52 | XR ---
EXAM DATE: 05/14/2018 11:30 AM EST AGE/SEX: 87 years / Female INDICATIONS: Short of breath. CLINICAL DATA: This is the patient's subsequent encounter. Patient reports that signs and symptoms h ave been present for 3 days and indicates a pain score of 0/10. MEDICAL/SURGICAL HISTORY: Congestive heart failure. Carcinoma, breast. Afib Mastectomy, left. COMPARISON: [facility], CHEST 1V SINGLE AP, 05/12/2018. . FINDINGS: Surgical clips in the left axilla are noted. The heart is enlarged. Mild interstitial edema is presen t, improved in the interval. There is no significant pleural effusion or pneumothorax. CONCLUSION: Compensated cardiomegaly, improved in the interval Electronically signed by: Yonatan Calderon MD 05/14/2018 11:51 AM EST
--- NOTE | 2018-05-14 13:22 | P.PNIM ---
Subjective Interval history: 87-year-old female who is seen and examined today for follow-up on altered mentation, CHF. Patient does appear to be much improved today. She is much more alert and orientated. She is now longer having episodes of severe A. fib with RVR due to anxiety. Discussed with patient, patient's family extensively. Currently the patient is now requiring oxygen to maintain O2 saturations. Will need further evaluation of that at this time. Vital signs are stable. Patient remains afebrile. Physical Exam Vital signs: Vital Signs 05/13/18 13:25 05/13/18 14:00 05/13/18 14:30 Temperature 99.0 F Pulse Rate 88 90 85 Respiratory Rate 19 23 19 Blood Pressure 140/82 140/82 Pulse Oximetry 94 L 99 05/13/18 14:57 05/13/18 15:00 05/13/18 16:00 Temperature Pulse Rate 90 112 H 86 Respiratory Rate 29 H 43 H 35 H Blood Pressure 135/90 Pulse Oximetry 95 86 L 94 L 05/13/18 19:00 05/13/18 20:00 05/13/18 20:15 Temperature Pulse Rate 92 H 100 H Respiratory Rate 24 24 Blood Pressure 160/86 H Pulse Oximetry 96 97 98 05/14/18 00:00 05/14/18 00:11 05/14/18 01:00 Temperature 98 F 98 F Pulse Rate 90 92 H 90 Respiratory Rate 25 H 37 H 33 H Blood Pressure 152/74 H 142/75 H 142/75 H Pulse Oximetry 95 97 97 05/14/18 04:02 05/14/18 04:45 05/14/18 08:00 Temperature 99.2 F 97.5 F L Pulse Rate 90 96 H Respiratory Rate 26 H 21 Blood Pressure 155/81 H 136/74 Pulse Oximetry 97 95 05/14/18 12:00 Temperature 98.3 F Pulse Rate 84 Respiratory Rate 26 H Blood Pressure 109/63 Pulse Oximetry 94 L Intake & Output 05/13/18 05/14/18 05/14/18 18:59 06:59 18:59 Intake Total 120 / 120 240 / 240 Output Total 1200 / 1200 500 / 500 Balance -1080 / -1080 -260 / -260 Weight 53.2 kg Intake: Oral 120 / 120 240 / 240 Output: Urine 500 / 500 Urine Amount (Catheter) 1200 / 1200 3000 1200 / 1200 Other: # Bowel Movements 0 Narrative: GENERAL: Well-developed, cachectic, in no acute distress. alert and orientated HEENT: Head is normocephalic without any lesions or masses noted. Facial features are symmetric. Eyes: Extraocular muscles are intact. Conjunctivae were clear. NECK: Supple without any masses. Trachea midline no deviation. No JVD, CARDIAC: Irregular rhythm, irregular rate. S1/S2 are heard. No murmurs gallops or rubs. LUNGS: Clear to auscultation bilaterally. No wheeze, rhonchi or rales. No use of accessory muscles on inspiration or expiration. ABDOMEN: Soft, nontender. Nondistended. Bowel sounds heard in all 4 quadrants. No organomegaly or masses. Negative rebound, negative guarding EXTREMITIES: No edema, pulses are equal bilaterally. No cyanosis or clubbing NEUROLOGY: Patient appears to be very anxious and affect appear appropriate. Cranial nerves II through XII grossly intact. Moving all extremities, speech is clear - Urinary Catheter Management Indwelling Urethral Catheter Cath placed during this visit: yes, but has since been removed by the nurse Reason for continuing: Decision to DC catheter Insertion date: 05/12/18 Insertion time: 10:00 Removal date: 05/13/18 Removal time: 13:09 3000 Cath placed during this visit: yes, but has since been removed by the nurse Reason for continuing: Decision to DC catheter Removal date: 05/13/18 Removal time: 13:10 Results - Labs CBC & Chem 7: 05/13/18 05:38 05/13/18 05:38 Laboratory Results - last 24 hr 05/12/18 13:40 RPR Nonreactive - Imaging Impressions Chest X-Ray 05/14/18 00:00 CONCLUSION: Compensated cardiomegaly, improved in the interval - Procedures ECHOCARDIOGRAM CONCLUSIONS Mildly dilated left ventricle. Wall thickness is normal. The left ventricular systolic function is xouyihhc-ye-glhcgkw reduced with an estimated ejection fraction in the range of 35-40%. There is global left ventricular dysfunction. The left atrial size is moderately dilated. The right atrial size is moderately dilated. Mild thickening of the mitral valve leaflets. Apyqkzjg-iv-mbzlob mitral valve regurgitation. Aortic valve sclerosis is present. Moderate aortic valve regurgitation. Mild thickening of the tricuspid valve leaflets. There is moderate to severe tricuspid valve regurgitation. The estimated pulmonary arterial pressure is 78 mmHg. Assessment and Plan - Assessment (1) Altered mental status Code(s): R41.82 - Altered mental status, unspecified Status: Acute (2) CHF exacerbation Code(s): I50.9 - Heart failure, unspecified Status: Acute - Plan Congestive heart failure exacerbation, unknown whether diastolic or systolic, compensated -Patient responded overly well to the single dose of Lasix 40 mg IV -Continue home diuresis -Strict input and output -Echocardiogram, please see results -Fluid restriction -Follow-up chest x-ray actually shows interval improvement Altered mental status, with visual hallucination, possible alcohol delirium, exacerbated dementia: Improved -Daughters indicate that at this does happen frequently, however they are usually able to get her back into reality. However they were unable to bring her back into reality so they brought her to the hospital for evaluation -CT scan of the head did not indicate any acute abnormality -CTA of the brain did not indicate any acute abnormality -Further studies to include sed rate, B12, folate, RPR were unremarkable -This could also be related to chronic daily alcohol use. We will continue monitor for any withdrawal symptoms, CIWA protocol -Continue thiamine and folic acid Chronic atrial fibrillation -Home medications will be continued for rate control -Continue Xarelto for anticoagulation DVT prevention -Patient is on Xarelto Discharge Planning: Anticipate discharge to skilled nurse facility once arrangements made by case management patient clinically improved, likely tomorrow.
[2018-05-14] MEDS: Rivaroxaban 15 MG Tablet PO SCH ×2 (17:26→20:32)
[2018-05-15 04:59] LABS: Calcium 7.9 mg/dL (8.5-10.1); Carbon Dioxide 33.1 meq/L (21.0-32.0)
[2018-05-15] MEDS ORDERED: Potassium Chloride 25 MEQ Effervescent Tablet PO ONE (06:11)
[2018-05-15] MEDS: Acetaminophen 325 MG Tablet PO PRN ×2 (08:18→17:38)
[2018-05-15] MEDS: Digoxin 125 MCG Tablet PO SCH (08:19)
[2018-05-15] MEDS: Folic Acid 1 MG Tablet PO SCH (08:19)
[2018-05-15] MEDS: Torsemide 20 MG Tablet PO SCH (08:19)
--- NOTE | 2018-05-15 10:43 | P.PNIM ---
Subjective Interval history: Patient is laying down in bed. Patient's family is at bedside. Currently the patient does not have any complaints other than mild left shoulder pain. Physical Exam Vital signs: Vital Signs 05/14/18 11:00 05/14/18 12:00 05/14/18 14:09 Temperature 98.3 F Pulse Rate 86 84 Respiratory Rate 26 H 26 H 22 Blood Pressure 109/63 Pulse Oximetry 97 94 L 05/14/18 14:43 05/14/18 16:00 05/14/18 19:00 Temperature 97.6 F Pulse Rate 84 92 H Respiratory Rate 28 H 28 H Blood Pressure 108/70 110/64 Pulse Oximetry 96 98 95 05/14/18 20:00 05/14/18 20:15 05/14/18 22:00 Temperature Pulse Rate 92 H 86 Respiratory Rate 32 H 25 H Blood Pressure 116/64 120/66 Pulse Oximetry 94 L 97 95 05/15/18 00:00 05/15/18 04:00 05/15/18 07:12 Temperature 97.7 F 97.8 F Pulse Rate 88 92 H 170 H Respiratory Rate 22 20 Blood Pressure 136/74 138/74 Pulse Oximetry 95 96 05/15/18 07:30 05/15/18 08:00 05/15/18 08:56 Temperature 97.9 F Pulse Rate 152 H 150 H Respiratory Rate 26 H 23 Blood Pressure 99/78 L 113/76 Pulse Oximetry 99 94 L 98 Intake & Output 05/14/18 05/15/18 05/15/18 18:59 06:59 18:59 Intake Total 60 / 60 Output Total 300 / 300 Balance -240 / -240 Weight 51.5 kg Intake: Oral 60 / 60 Output: Urine 300 / 300 Other: # Incontinent Voids 2 Date of Last Bowel Movement 05/14/18 Narrative: General patient in no acute distress HEENT extraocular movements are intact, clear oropharyngeal mucosa Cardiovascular S1-S2 audible, irregularly irregular rhythm Respiratory clear to auscultation bilaterally Abdomen soft, nontender, nondistended, normal bowel sounds Extremities no edema 2+ distal pulses in bilateral upper and lower extremities Neuro patient moves all 4 extremities. Sensation is intact bilaterally - Urinary Catheter Management Indwelling Urethral Catheter Cath placed during this visit: yes, but has since been removed by the nurse Reason for continuing: Decision to DC catheter Insertion date: 05/12/18 Insertion time: 10:00 Removal date: 05/13/18 Removal time: 13:09 3000 Cath placed during this visit: yes, but has since been removed by the nurse Reason for continuing: Decision to DC catheter Removal date: 05/13/18 Removal time: 13:10 Results - Labs CBC & Chem 7: 05/13/18 05:38 05/15/18 04:30 Laboratory Results - last 24 hr 05/15/18 04:30 Sodium 139 Potassium 3.0 L Chloride 97 L D Carbon Dioxide 33.1 H Anion Gap 9 BUN 20 H Creatinine 0.70 Estimated GFR 79 L Random Glucose 82 Calcium 7.9 L - Imaging Impressions Chest X-Ray 05/14/18 00:00 CONCLUSION: Compensated cardiomegaly, improved in the interval - Procedures ECHOCARDIOGRAM CONCLUSIONS Mildly dilated left ventricle. Wall thickness is normal. The left ventricular systolic function is gtkmvwor-wz-vvswebs reduced with an estimated ejection fraction in the range of 35-40%. There is global left ventricular dysfunction. The left atrial size is moderately dilated. The right atrial size is moderately dilated. Mild thickening of the mitral valve leaflets. Gutaglzb-ru-cbeytd mitral valve regurgitation. Aortic valve sclerosis is present. Moderate aortic valve regurgitation. Mild thickening of the tricuspid valve leaflets. There is moderate to severe tricuspid valve regurgitation. The estimated pulmonary arterial pressure is 78 mmHg. Assessment and Plan - Assessment (1) Altered mental status Code(s): R41.82 - Altered mental status, unspecified Status: Acute (2) CHF exacerbation Code(s): I50.9 - Heart failure, unspecified Status: Acute - Plan This patient is a 87-year-old female with a diagnosis of atrial fibrillation on Xarelto, systolic CHF ejection fraction 35-40%, the patient presented to our emergency department with complaints of shortness of breath and was found to be in atrial fibrillation with rapid ventricular rate. 1. Atrial fibrillation with rapid ventricular rate likely acute on chronic systolic CHF exacerbation. 2. Acute hypoxic respiratory failure secondary to #1 Patient's heart rate is now under control. She was initially on IV Lasix. Currently the patient appears euvolemic. Continue beta-eric, continue Xarelto for anticoagulation. The patient has been requiring on and off supplemental oxygen throughout the day. Case discussed with the patient's nurse and will titrate the patient off of supplemental oxygen. Currently there are no complaints of shortness of breath. 3. Acute encephalopathy likely secondary to #1 resolved Patient is currently alert and oriented x3. She is able to hold a conversation and is appropriate. CT scan of the head showed a possible aneurysm, CTA of the head was done which did not show any significant abnormalities. UA negative Patient advised to avoid alcohol. Acute encephalopathy has resolved. 4. Bilateral knee pain After discussion with the patient's nurse appears the patient had a fall in the hospital a couple of days ago. She is complaining of some knee pain bilaterally. I will obtain an x-ray of the knees. Tylenol as needed for pain. We will discussed this case today with case management regarding the patient's discharge plan. Family is concerned about sending the patient to a [facility] facility.
--- NOTE | 2018-05-15 11:42 | XR ---
EXAM DATE: 05/15/2018 11:39 AM EST AGE/SEX: 87 years / Female INDICATIONS: Fall, right knee pain and swelling. CLINICAL DATA: This is the patient's subsequent encounter. Patient reports that signs and symptoms h ave been present for 3 days and indicates a pain score of 6/10. MEDICAL/SURGICAL HISTORY: None. None. COMPARISON: [facility], KNEE RIGHT COMPLETE (4VWS), 10/30/2017. . FINDINGS: Chondrocalcinosis and severe arthritic change with near complete loss of joint space in the lateral c ompartment and tricompartmental osteophyte formation. No evidence of fracture or joint effusion. CONCLUSION: Severe changes of pyrophosphate arthropathy. No evidence of acute bony injury Electronically signed by: Patrick Henderson MD 05/15/2018 11:40 AM EST
--- NOTE | 2018-05-15 11:42 | XR ---
EXAM DATE: 05/15/2018 11:37 AM EST AGE/SEX: 87 years / Female INDICATIONS: Fall, left knee pain. CLINICAL DATA: This is the patient's subsequent encounter. Patient reports that signs and symptoms h ave been present for 3 days and indicates a pain score of 3/10. MEDICAL/SURGICAL HISTORY: None. None. COMPARISON: [facility], KNEE LEFT COMPLETE (4VWS), 10/30/2017. . FINDINGS: Chondrocalcinosis and moderate arthritic change. Tricompartmental joint space narrowing and osteophyt e formation. No evidence of joint effusion or fracture. CONCLUSION: Moderate changes of pyrophosphate arthropathy. No acute bony injury. Electronically signed by: Patrick Henderson MD 05/15/2018 11:41 AM EST
[2018-05-15] MEDS ORDERED: Sodium Chlor 0.9% Inj 500 ML IV.CONT ONE (16:00)
[2018-05-15] MEDS: Rivaroxaban 15 MG Tablet PO SCH (18:03)
[2018-05-16 05:10] LABS: Potassium 3.6 meq/L (3.5-5.1)
[2018-05-16 05:13] LABS: Calcium 7.8 mg/dL (8.5-10.1)
[2018-05-16 05:14] LABS: Carbon Dioxide 33.8 meq/L (21.0-32.0); Magnesium 1.6 mg/dL (1.5-2.5)
[2018-05-16] MEDS: Torsemide 20 MG Tablet PO SCH (08:23)
[2018-05-16] MEDS: Acetaminophen 325 MG Tablet PO PRN ×2 (08:23→23:39)
[2018-05-16] MEDS: Folic Acid 1 MG Tablet PO SCH (08:23)
[2018-05-16] MEDS: Digoxin 125 MCG Tablet PO SCH (08:24)
--- NOTE | 2018-05-16 09:32 | P.DS ---
Date of admission: 05/12/18 09:54 Primary care physician: UNKNOWN Brief History from admission: 87-year-old female with known history of atrial fibrillation, congestive heart failure, history of breast cancer, history of pleural effusion who presented to the hospital because of altered mental status. Patient presented with atrial fibrillation with RVR and altered mental status. DS: Diagnosis - Discharge Diagnosis (1) Altered mental status Status: Acute (2) CHF exacerbation Status: Acute DS: Summary Hospital Course: This patient is a 87-year-old female with a diagnosis of atrial fibrillation on Xarelto, systolic CHF ejection fraction 35-40%, the patient presented to our emergency department with complaints of shortness of breath and was found to be in atrial fibrillation with rapid ventricular rate. 1. Atrial fibrillation with rapid ventricular rate likely acute on chronic systolic CHF exacerbation. 2. Acute hypoxic respiratory failure secondary to #1 Patient initially presented with A. fib with rapid ventricular rate. Troponins were negative. Patient's heart rate is now under control. She was initially on IV Lasix. Currently the patient appears euvolemic. Continue beta-eric, continue Xarelto for anticoagulation. Patient was also initially requiring supplemental oxygen on and off throughout the hospitalization. She has now been titrated off of supplemental oxygen and is currently on room air. 3. Acute encephalopathy likely secondary to #1 resolved 4. Chronic alcohol use Patient is currently alert and oriented x3. She is able to hold a conversation and is appropriate. CT scan of the head showed a possible aneurysm, CTA of the head was done which did not show any significant abnormalities. UA negative Patient advised to avoid alcohol. No signs of withdrawal throughout the hospitalization. Acute encephalopathy has resolved. 4. 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 She can follow-up with her primary care doctor and orthopedics after discharge for further management care regarding her bilateral knee pain. We will discussed this case today with case management regarding the patient's discharge plan. Family is concerned about sending the patient to a [place] [facility] facility. - Time Spent with Patient Total time spent providing and/or coordinating discharge services: Greater than 30 minutes - Quality: VTE Deep Vein Thrombosis/Pulmonary Embolism Present on Admission: No Exam Vital signs: Vital Signs 05/15/18 12:00 05/15/18 14:00 05/15/18 14:39 Temperature 97.9 F Pulse Rate 62 72 76 Respiratory Rate 21 24 30 H Blood Pressure 112/62 100/50 L 87/50 L Pulse Oximetry 95 88 L 93 L 05/15/18 14:42 05/15/18 14:43 05/15/18 14:51 Temperature Pulse Rate 74 74 Respiratory Rate 23 22 Blood Pressure 95/50 L 73/50 L 82/46 L Pulse Oximetry 93 L 97 05/15/18 15:20 05/15/18 16:00 05/15/18 20:00 Temperature 97.8 F 98.2 F Pulse Rate 76 72 78 Respiratory Rate 23 24 31 H Blood Pressure 99/55 L 90/47 L 92/57 L Pulse Oximetry 95 95 98 05/15/18 20:30 05/16/18 00:00 05/16/18 04:00 Temperature 97.9 F Pulse Rate 82 84 Respiratory Rate 23 23 Blood Pressure 111/68 118/68 Pulse Oximetry 98 97 95 05/16/18 04:30 05/16/18 07:22 05/16/18 08:00 Temperature 98.3 F 97.4 F L Pulse Rate 103 H Respiratory Rate 22 Blood Pressure 136/75 Pulse Oximetry 99 92 L Intake & Output 05/15/18 05/16/18 05/16/18 18:59 06:59 18:59 Intake Total 500 / 500 40 / 40 Balance 500 / 500 40 / 40 Weight 53.3 kg Intake: IV 500 / 500 NS Inj 500 ML @ 0 mls/hr IV. 500 / 500 CONT .Q0M ONE Rx#:[id number] Oral 40 / 40 Other: Date of Last Bowel Movement 05/14/18 Narrative: General patient in no acute distress HEENT extraocular movements are intact, clear oropharyngeal mucosa Cardiovascular S1-S2 audible, irregularly irregular rhythm Respiratory clear to auscultation bilaterally Abdomen soft, nontender, nondistended, normal bowel sounds Extremities bilateral knee swelling, right side more than the left. Neuro patient moves all 4 extremities. Sensation is intact bilaterally Results Procedures completed during hospitalization: ECHOCARDIOGRAM CONCLUSIONS Mildly dilated left ventricle. Wall thickness is normal. The left ventricular systolic function is ryphllin-eb-zimfewk reduced with an estimated ejection fraction in the range of 35-40%. There is global left ventricular dysfunction. The left atrial size is moderately dilated. The right atrial size is moderately dilated. Mild thickening of the mitral valve leaflets. Ltjowlsh-aw-duqrff mitral valve regurgitation. Aortic valve sclerosis is present. Moderate aortic valve regurgitation. Mild thickening of the tricuspid valve leaflets. There is moderate to severe tricuspid valve regurgitation. The estimated pulmonary arterial pressure is 78 mmHg. Labs on day of discharge: Labs from last 24 hours 05/16/18 04:40 Sodium 141 Potassium 3.6 Chloride 102 Carbon Dioxide 33.8 H Anion Gap 5 BUN 27 H Creatinine 0.69 Estimated GFR 80 L Random Glucose 88 Calcium 7.8 L Magnesium 1.6 - Impressions ITS Impressions Head CT 05/12/18 07:26 CONCLUSION: 1. Atrophy and white matter disease most likely chronic in nature. 2. Possible left MCA aneurysm suspected. This can be further evaluated with MRI of the brain/MRA of the [place]. . Head CTA 05/12/18 08:30 CONCLUSION: 1. No aneurysm. . Chest X-Ray 05/14/18 00:00 CONCLUSION: Compensated cardiomegaly, improved in the interval Knee X-Ray 05/15/18 00:00 CONCLUSION: Moderate changes of pyrophosphate arthropathy. No acute bony injury. Discharge Plan - Physicians Team Primary Care Provider: UNKNOWN, Attending Provider: Fidel Sorto Other Providers: Tessa Coleman,Agency ; Jimenez Jama,Agency
[2018-05-16] MEDS ORDERED: Magnesium Sulfate Inj 2 GM in Sodium Chlor 0.9% Inj 96 ML IV.SIG ONE (11:00)
[2018-05-16] MEDS ORDERED: Sodium Chlor 0.9% Inj 250 ML IV.SIG ONE (16:55)
[2018-05-16] MEDS: Rivaroxaban 15 MG Tablet PO SCH (17:17)
[2018-05-17] MEDS: Torsemide 20 MG Tablet PO SCH (08:35)
[2018-05-17] MEDS: Folic Acid 1 MG Tablet PO SCH (08:35)
[2018-05-17] MEDS: Digoxin 125 MCG Tablet PO SCH (08:35)
[2018-05-17] MEDS: Acetaminophen 325 MG Tablet PO PRN (08:37)
[2018-05-17] MEDS ORDERED: Sodium Chlor 0.9% Inj 250 ML IV.SIG ONE (15:00)
[2018-05-17] MEDS ORDERED: Magnesium Sulfate Inj 2 GM in Sodium Chlor 0.9% Inj 96 ML IV.SIG ONE (15:24)
--- NOTE | 2018-05-17 15:24 | P.PNIM ---
Subjective Interval history: Patient is sitting down comfortably in a chair. She does not have any complaints today. Physical Exam Vital signs: Vital Signs 05/16/18 16:00 05/16/18 17:10 05/16/18 17:11 Temperature 98.1 F Pulse Rate 90 161 H 144 H Respiratory Rate Blood Pressure 123/68 Pulse Oximetry 90 L 05/16/18 17:12 05/16/18 20:00 05/16/18 20:50 Temperature Pulse Rate 151 H 86 Respiratory Rate Blood Pressure Pulse Oximetry 94 L 05/16/18 21:00 05/16/18 22:00 05/17/18 00:00 Temperature 97.4 F L 97.6 F Pulse Rate 90 84 84 Respiratory Rate 17 20 20 Blood Pressure 112/68 117/62 122/68 Pulse Oximetry 94 L 93 L 92 L 05/17/18 04:00 05/17/18 07:20 05/17/18 08:00 Temperature 97.9 F 97.8 F Pulse Rate 82 112 H Respiratory Rate 23 18 Blood Pressure 116/67 124/73 Pulse Oximetry 97 93 L 96 05/17/18 08:30 05/17/18 09:00 05/17/18 10:00 Temperature Pulse Rate 134 H 100 H 86 Respiratory Rate 27 H 25 H 24 Blood Pressure Pulse Oximetry 05/17/18 11:00 05/17/18 12:00 05/17/18 13:30 Temperature Pulse Rate 84 90 82 Respiratory Rate 26 H 24 29 H Blood Pressure 84/46 L Pulse Oximetry 05/17/18 13:31 05/17/18 13:34 Temperature Pulse Rate 80 80 Respiratory Rate 22 24 Blood Pressure 78/50 L 79/45 L Pulse Oximetry Intake & Output 05/16/18 05/17/18 05/17/18 18:59 06:59 18:59 Intake Total 1310 / 1310 Output Total 1200 / 1200 400 / 400 Balance 110 / 110 -400 / -400 Weight 54.4 kg Intake: IV 350 / 350 Magnesium Sulfate Inj 2 GM In 100 / 100 NS Inj 96 ML @ 50 mls/hr IV.SIG ONCE ONE Rx#:[id number] Oral 960 / 960 Output: Urine 1200 / 1200 400 / 400 Other: # Urine Diapers 1 Date of Last Bowel Movement 11/12/18 11/12/18 11/12/18 Narrative: General patient in no acute distress HEENT extraocular movements are intact, clear oropharyngeal mucosa Cardiovascular S1-S2 audible, irregularly irregular rhythm Respiratory clear to auscultation bilaterally Abdomen soft, nontender, nondistended, normal bowel sounds Extremities bilateral knee swelling, right side more than the left. Neuro patient moves all 4 extremities. Sensation is intact bilaterally - Urinary Catheter Management Indwelling Urethral Catheter Cath placed during this visit: yes, but has since been removed by the nurse Reason for continuing: Decision to DC catheter Insertion date: 05/12/18 Insertion time: 10:00 Removal date: 05/13/18 Removal time: 13:09 3000 Cath placed during this visit: yes, but has since been removed by the nurse Reason for continuing: Decision to DC catheter Removal date: 05/13/18 Removal time: 13:10 Results - Labs CBC & Chem 7: 05/13/18 05:38 05/16/18 04:40 - Procedures ECHOCARDIOGRAM CONCLUSIONS Mildly dilated left ventricle. Wall thickness is normal. The left ventricular systolic function is kwxirshy-ar-kprcvtx reduced with an estimated ejection fraction in the range of 35-40%. There is global left ventricular dysfunction. The left atrial size is moderately dilated. The right atrial size is moderately dilated. Mild thickening of the mitral valve leaflets. Nezhxclh-og-kkxdjm mitral valve regurgitation. Aortic valve sclerosis is present. Moderate aortic valve regurgitation. Mild thickening of the tricuspid valve leaflets. There is moderate to severe tricuspid valve regurgitation. The estimated pulmonary arterial pressure is 78 mmHg. Assessment and Plan - Assessment (1) Altered mental status Code(s): R41.82 - Altered mental status, unspecified Status: Acute (2) CHF exacerbation Code(s): I50.9 - Heart failure, unspecified Status: Acute - Plan This patient is a 87-year-old female with a diagnosis of atrial fibrillation on Xarelto, systolic CHF ejection fraction 35-40%, the patient presented to our emergency department with complaints of shortness of breath and was found to be in atrial fibrillation with rapid ventricular rate. 1. Atrial fibrillation with rapid ventricular rate likely acute on chronic systolic CHF exacerbation. 2. Acute hypoxic respiratory failure secondary to #1 Patient's heart rate is currently under control. Her beta-eric dose was increased yesterday. Overnight the patient did have episodes where she was going in and out of A. fib with RVR. The patient follows up with Dr. Grewal who is her roll coverer. Cardiology will be consulted to evaluate the patient, I would appreciate their recommendations. Patient has an ejection fraction of 35%. This may be an old diagnosis as there is documentation of congestive heart failure. Patient is now off of supplemental oxygen. I will follow-up with cardiology recommendations. Follow-up a.m. renal panel. Electrolyte will be replaced. Case discussed with case management today the patient will likely be discharged to a long term facility most likely tomorrow. 3. Acute encephalopathy likely secondary to #1 resolved The patient's acute encephalopathy has resolved. 4. Bilateral knee pain Continue pain medication as needed for the knee pain. Imaging shows findings consistent of the right us, no acute fracture. 5. Hypotension Patient was hypotensive this morning with a systolic blood pressure in the low 80s. She was given a small NS bolus and her blood pressure responded appropriately. We will continue to monitor the patient.
--- NOTE | 2018-05-17 18:09 | MB ---
cc: Vanita Jean MD DATE: 05/17/2018 REASON FOR CONSULTATION: Atrial fibrillation with rapid ventricular rate. HISTORY OF PRESENT ILLNESS: Ms. Rdz is an 87-year-old patient of my partner, Dr. Osei, who does have a history of atrial fibrillation and CHF. The patient apparently does have some noncompliance, particularly with sodium. The daughter brought her in for buildup of fluid and altered mental status several days ago. The patient subsequently had an episode of atrial fibrillation with RVR and cardiology was consulted. The patient herself is a poor historian. Her daughters assisted with the history. She reports that she is doing much better today. She has been relatively sedentary in the ICU bed. ALLERGIES: NO KNOWN DRUG ALLERGIES. CURRENT MEDICATIONS: Per the record. OUTPATIENT MEDICATIONS: Include: 1. Atorvastatin 10 mg a day. 2. Digoxin 0.125 mg a day. 3. Escitalopram 20 mg a day. 4. Metoprolol XL 50 mg a day. 5. Naprosyn. 6. Potassium chloride 10 mEq b.i.d. 7. Ranitidine. 8. Torsemide 20 mg a day. 9. Verapamil 120 mg a day. 10. Xarelto 15 mg a day. PAST MEDICAL HISTORY: Significant for moderate aortic regurgitation, atrial fibrillation with a CHADS-VASc score of 5. She is status post failed ablation in 2011. She does have mild coronary artery disease by catheterization in October 2015, CHF. Her EF has been as low as 20% to 25% in the past. In 06/2017, it was back to 55%. She also has a history of hypertension, hyperlipidemia, mild mitral regurgitation, pulmonary hypertension. SOCIAL HISTORY: Does include occasional alcohol. She has never smoked. REVIEW OF SYSTEMS: The patient is unable secondary to altered mental status. PHYSICAL EXAMINATION: VITAL SIGNS: Currently are 80, 24, 112/76. GENERAL: She is a hard of hearing, well-appearing, elderly female who is in no apparent distress. NECK: Free from JVD. LUNGS: Bilaterally clear to auscultation. CARDIOVASCULAR: She has an irregularly irregular rhythm. There is a 2/6 systolic murmur. No rubs or gallops are appreciated. ABDOMEN: Soft. EXTREMITIES: Free from edema. TELEMETRY: Shows atrial fibrillation with a controlled ventricular rate. The tele strips from earlier do show an episode of RVR into the 150s. LABORATORY VALUES: Significant for a creatinine of 0.69. Her BUN is 27. ECHOCARDIOGRAM: From 05/13/2018 shows an EF of 35% to 40%. There is moderate to severe mitral regurgitation. IMPRESSION: 1. Atrial fibrillation - the patient does have a history of the same. She had been on her standard metoprolol dose, but does not appear to have been on the calcium channel eric. She did have some atrial fibrillation with rapid ventricular rate and subsequently the beta eric was increased and then Cardizem added. She is well rate controlled now. I would continue her on the 75 of metoprolol. Ultimately, the Cardizem can be changed to the long-acting formulation. I would consider discontinuing the digoxin as she has had problems with mental status changes. The patient does continue on the Xarelto. 2. Congestive heart failure - the patient apparently has had an acute systolic congestive heart failure episode. She had a catheterization not too long ago with mild disease. Thus, I do not feel an ischemia workup is required again. At this point, her blood pressure is too low for any angiotensin-converting enzyme inhibitors. I would continue to favor the beta blockade over the calcium channel blockers. The patient at this point does appear to have been a bit over diuresed as her BUN to creatinine ratio is elevated. Thus, at this point, I would hold the diuretic and continue the fluids. MD SPENCER Barrios/rocio , 04:33 PM , 04:45 PM
[2018-05-17] MEDS: dilTIAZem 60 MG Tablet PO SCH ×2 (18:24→20:00)
[2018-05-17] MEDS: Rivaroxaban 15 MG Tablet PO SCH (18:24)
[2018-05-18] MEDS: Acetaminophen 325 MG Tablet PO PRN (05:06)
[2018-05-18 05:54] VITALS: TEMP 98.1
[2018-05-18 06:04] LABS: Potassium 3.5 meq/L (3.5-5.1)
[2018-05-18 06:59] LABS: Calcium 8.8 mg/dL (8.5-10.1)
--- NOTE | 2018-05-18 08:14 | P.PNCA ---
Subjective Interval history: Pt without complaints Medications and Allergies Active Medications: Active Medications Acetaminophen (Tylenol) 650 mg PO Q4H PRN PRN Reason: Headache, fever, pain 1-4 Last Admin: 05/18/18 05:06 Dose: 650 mg Al Hydroxide/Mg Hydroxide (Milk Of Magnesia Liq) 30 ml PO Q12H PRN PRN Reason: Mild Constipation Atorvastatin Calcium (Lipitor) 10 mg PO HS [facility] Last Admin: 05/17/18 20:00 Dose: 10 mg Bisacodyl (Dulcolax Supp) 10 mg RECTAL DAILY PRN PRN Reason: SEVERE CONSITIPATION Diltiazem HCl (Cardizem) 60 mg PO QID [facility] Last Admin: 05/17/18 20:00 Dose: 60 mg Escitalopram Oxalate (Lexapro) 20 mg PO DAILY [facility] Last Admin: 05/17/18 08:35 Dose: 20 mg Flumazenil (Romazecon Inj) 0.2 mg IV.PUSH Q1M PRN PRN Reason: OVERSEDATION Folic Acid (Folic Acid) 1 mg PO DAILY [facility] Last Admin: 05/17/18 08:35 Dose: 1 mg Haloperidol Lactate (Haldol Inj) 1 mg IV.PUSH Q15M PRN PRN Reason: for severe agitation Lactulose (Lactulose Liq) 30 ml PO DAILY PRN PRN Reason: SEVERE CONSITIPATION Lorazepam (Ativan Inj) 0.25 mg IV.PUSH Q4H PRN PRN Reason: AGITATION AND/OR HALLUCINATION Metoprolol Succinate (Toprol Xl) 75 mg PO DAILY [facility] Last Admin: 05/17/18 08:36 Dose: 75 mg Ondansetron HCl (Zofran Inj) 4 mg IV.PUSH Q6H PRN PRN Reason: NAUSEA OR VOMITING Rivaroxaban (Xarelto) 15 mg PO QPM [facility] Last Admin: 05/17/18 18:24 Dose: 15 mg Sennosides (Senokot) 17.2 mg PO Q12H PRN PRN Reason: Moderate Constipation Sodium Chloride (Ns Flush) 2 ml IV.FLUSH PRN PRN PRN Reason: FLUSH AFTER USING IV ACCESS Sodium Chloride (Ns Flush) 2 ml IV.FLUSH BID [facility] Last Admin: 05/17/18 20:01 Dose: 2 ml Thiamine HCl (Vitamin B1) 100 mg PO DAILY [facility] Last Admin: 05/17/18 08:35 Dose: 100 mg Allergies Allergy/AdvReac Type Severity Reaction Status Date / Time No Known Drug Allergies Allergy Unknown Verified 12/24/17 10:39 Home Medications Medication Instructions Recorded Confirmed Type atorvastatin 10 mg PO DAILY 05/12/18 05/12/18 History cholecalciferol (vitamin D3) 2,000 unit PO DAILY 05/12/18 05/12/18 History [Vitamin D3] cyanocobalamin (vitamin B-12) 1,000 mcg PO DAILY 05/12/18 05/12/18 History [Vitamin B-12] digoxin 0.125 mg PO DAILY 05/12/18 05/12/18 History escitalopram oxalate 20 mg PO DAILY 05/12/18 05/12/18 History ferrous sulfate [iron] 325 mg PO DAILY 05/12/18 05/12/18 History metoprolol succinate 50 mg PO DAILY 05/12/18 05/12/18 History montelukast 10 mg PO QPM 05/12/18 05/12/18 History peg 400-propylene glycol (PF) 1 drp OPHTHALMIC (EYE) Q4H PRN 05/12/18 05/12/18 History [Systane (PF)] potassium chloride 10 meq PO BID 05/12/18 05/12/18 History ranitidine HCl 150 mg PO BID 05/12/18 05/12/18 History rivaroxaban [Xarelto] 15 mg PO QPM 05/12/18 05/12/18 History torsemide 20 mg PO DAILY 05/12/18 05/12/18 History verapamil 120 mg PO DAILY 05/12/18 05/12/18 History vitamins A,C,H-ikac-tdcxbn 2 tab PO BID 05/12/18 05/12/18 History [PreserVision AREDS] Physical Exam Vital signs: Vital Signs 05/17/18 08:30 05/17/18 09:00 05/17/18 10:00 Temperature Pulse Rate 134 H 100 H 86 Respiratory Rate 27 H 25 H 24 Blood Pressure Pulse Oximetry 05/17/18 11:00 05/17/18 12:00 05/17/18 13:30 Temperature Pulse Rate 84 90 82 Respiratory Rate 26 H 24 29 H Blood Pressure 84/46 L Pulse Oximetry 05/17/18 13:31 05/17/18 13:34 05/17/18 13:46 Temperature Pulse Rate 80 80 78 Respiratory Rate 22 24 20 Blood Pressure 78/50 L 79/45 L 83/52 L Pulse Oximetry 05/17/18 14:00 05/17/18 14:22 05/17/18 15:00 Temperature Pulse Rate 78 74 74 Respiratory Rate 17 25 H 21 Blood Pressure 78/49 L 75/52 L 98/59 L Pulse Oximetry 05/17/18 16:00 05/17/18 17:00 05/17/18 18:00 Temperature 97.8 F Pulse Rate 74 74 82 Respiratory Rate 22 22 26 H Blood Pressure 115/72 120/77 114/61 Pulse Oximetry 05/17/18 19:55 05/17/18 20:00 05/18/18 00:00 Temperature 98.8 F 97.7 F Pulse Rate 78 79 Respiratory Rate 25 H 16 Blood Pressure 110/55 L 111/64 Pulse Oximetry 94 L 97 95 05/18/18 04:00 Temperature 98.1 F Pulse Rate 71 Respiratory Rate 16 Blood Pressure 116/65 Pulse Oximetry 95 Intake & Output 05/17/18 05/18/18 05/18/18 18:59 06:59 18:59 Intake Total 350 / 350 Balance 350 / 350 Weight 53.6 kg Intake: IV 350 / 350 Magnesium Sulfate Inj 2 GM In 100 / 100 NS Inj 96 ML @ 50 mls/hr IV.SIG ONCE ONE Rx#:[id number] NS Inj 250 ML @ 0 mls/hr IV.SIG 250 / 250 ONCE ONE Rx#:[id number] Other: Date of Last Bowel Movement 05/14/18 05/14/18 - Routine Neck Exam Present: supple - Routine Respiratory Exam Present: rales - Routine Cardiovascular Exam Present: irregularly irregular Comments: no edema - Routine Abdominal Exam Present: soft - Urinary Catheter Management Indwelling Urethral Catheter Cath placed during this visit: yes, but has since been removed by the nurse Reason for continuing: Decision to DC catheter Insertion date: 05/12/18 Insertion time: 10:00 Removal date: 05/13/18 Removal time: 13:09 3000 Cath placed during this visit: yes, but has since been removed by the nurse Reason for continuing: Decision to DC catheter Removal date: 05/13/18 Removal time: 13:10 Results 05/13/18 05:38 05/18/18 05:00 Comprehensive Metabolic Panel 05/18/18 Range/Units 05:00 Sodium 141 (136-145) meq/L Potassium 3.5 (3.5-5.1) meq/L Chloride 101 (98-107) meq/L Carbon Dioxide 33.0 H (21.0-32.0) meq/L BUN 21 H (7-18) mg/dL Creatinine 0.68 (0.50-1.00) mg/dL Calcium 8.8 (8.5-10.1) mg/dL Intake and Output 05/17/18 05/18/18 05/18/18 22:59 06:59 14:59 Intake Total 350 / 350 Balance 350 / 350 Intake: IV 350 / 350 Magnesium Sulfate Inj 2 GM In 100 / 100 NS Inj 96 ML @ 50 mls/hr IV.SIG ONCE ONE Rx#:[id number] NS Inj 250 ML @ 0 mls/hr IV.SIG 250 / 250 ONCE ONE Rx#:[id number] Other: Date of Last Bowel Movement 05/14/18 Weight 53.6 kg Assessment and Plan - Plan AF - rate controlled, change to long acting cardizem systolic CHF- rales again this am, though no edema - PO lasix AMS- per primary team
[2018-05-18] MEDS ORDERED: Furosemide 20 MG Tablet PO SCH (09:00)
[2018-05-18] MEDS ORDERED: Potassium Chloride 10 MEQ ER Capsule PO SCH (09:00)
[2018-05-18] MEDS: Folic Acid 1 MG Tablet PO SCH (09:00)
[2018-05-18] MEDS ORDERED: dilTIAZem CD 120 MG Capsule PO SCH (12:00)
--- NOTE | 2018-05-18 12:36 | P.PNIM ---
Subjective Interval history: Patient is in no acute distress. She looks forward to going to a senior living facility for rehab. Physical Exam Vital signs: Vital Signs 05/17/18 13:30 05/17/18 13:31 05/17/18 13:34 Temperature Pulse Rate 82 80 80 Respiratory Rate 29 H 22 24 Blood Pressure 84/46 L 78/50 L 79/45 L Pulse Oximetry 05/17/18 13:46 05/17/18 14:00 05/17/18 14:22 Temperature Pulse Rate 78 78 74 Respiratory Rate 20 17 25 H Blood Pressure 83/52 L 78/49 L 75/52 L Pulse Oximetry 05/17/18 15:00 05/17/18 16:00 05/17/18 17:00 Temperature 97.8 F Pulse Rate 74 74 74 Respiratory Rate 21 22 22 Blood Pressure 98/59 L 115/72 120/77 Pulse Oximetry 05/17/18 18:00 05/17/18 19:55 05/17/18 20:00 Temperature 98.8 F Pulse Rate 82 78 Respiratory Rate 26 H 25 H Blood Pressure 114/61 110/55 L Pulse Oximetry 94 L 97 05/18/18 00:00 05/18/18 04:00 Temperature 97.7 F 98.1 F Pulse Rate 79 71 Respiratory Rate 16 16 Blood Pressure 111/64 116/65 Pulse Oximetry 95 95 Intake & Output 05/17/18 05/18/18 05/18/18 18:59 06:59 18:59 Intake Total 350 / 350 Balance 350 / 350 Weight 53.6 kg Intake: IV 350 / 350 Magnesium Sulfate Inj 2 GM In 100 / 100 NS Inj 96 ML @ 50 mls/hr IV.SIG ONCE ONE Rx#:[id number] NS Inj 250 ML @ 0 mls/hr IV.SIG 250 / 250 ONCE ONE Rx#:[id number] Other: Date of Last Bowel Movement 05/14/18 05/14/18 Narrative: General patient in no acute distress HEENT extraocular movements are intact, clear oropharyngeal mucosa, no JVD Cardiovascular S1-S2 audible, irregularly irregular rhythm Respiratory clear to auscultation bilaterally Abdomen soft, nontender, nondistended, normal bowel sounds Extremities no edema 2+ distal pulses in bilateral upper and lower extremities Neuro cranial nerves II through XII intact - Urinary Catheter Management Indwelling Urethral Catheter Cath placed during this visit: yes, but has since been removed by the nurse Reason for continuing: Decision to DC catheter Insertion date: 05/12/18 Insertion time: 10:00 Removal date: 05/13/18 Removal time: 13:09 3000 Cath placed during this visit: yes, but has since been removed by the nurse Reason for continuing: Decision to DC catheter Removal date: 05/13/18 Removal time: 13:10 Results - Labs CBC & Chem 7: 05/13/18 05:38 05/18/18 05:00 Laboratory Results - last 24 hr 05/18/18 05:00 Sodium 141 Potassium 3.5 Chloride 101 Carbon Dioxide 33.0 H Anion Gap 7 BUN 21 H Creatinine 0.68 Estimated GFR 81 L Random Glucose 90 Calcium 8.8 Digoxin 1.0 - Procedures ECHOCARDIOGRAM CONCLUSIONS Mildly dilated left ventricle. Wall thickness is normal. The left ventricular systolic function is qgbyfuvg-cv-tnjerlz reduced with an estimated ejection fraction in the range of 35-40%. There is global left ventricular dysfunction. The left atrial size is moderately dilated. The right atrial size is moderately dilated. Mild thickening of the mitral valve leaflets. Jvxitonv-fp-ahhdix mitral valve regurgitation. Aortic valve sclerosis is present. Moderate aortic valve regurgitation. Mild thickening of the tricuspid valve leaflets. There is moderate to severe tricuspid valve regurgitation. The estimated pulmonary arterial pressure is 78 mmHg. Assessment and Plan - Assessment (1) Altered mental status Code(s): R41.82 - Altered mental status, unspecified Status: Acute (2) CHF exacerbation Code(s): I50.9 - Heart failure, unspecified Status: Acute - Plan This patient is a 87-year-old female with a diagnosis of atrial fibrillation on Xarelto, systolic CHF ejection fraction 35-40%, the patient presented to our emergency department with complaints of shortness of breath and was found to be in atrial fibrillation with rapid ventricular rate. 1. Atrial fibrillation with rapid ventricular rate likely acute on chronic systolic CHF exacerbation. 2. Acute hypoxic respiratory failure secondary to #1 Patient initially presented with A. fib with rapid ventricular rate. Troponins were negative. Patient's heart rate is now under control. She was initially on IV Lasix. Currently the patient appears euvolemic. Continue beta-eric, dose increased. Cardiology evaluated the patient and recommended discontinuing digoxin and changed diltiazem extended release. Continue Xarelto for anticoagulation. The patient did receive some fluids over the past couple of days as it appears that she was slightly dehydrated during the hospitalization. Diuretics have been discontinued. Continue to monitor the patient for signs of potential fluid overload as her diuretics may need to be restarted over the next week. Patient was also initially requiring supplemental oxygen on and off throughout the hospitalization. She has now been titrated off of supplemental oxygen and is currently on room air, no complaints of shortness of breath. Patient has ejection fraction of 35-40%. As per cardiology's documentation the patient had a cardiac catheterization not too long ago which showed only mild disease. Currently her blood pressure is on the lower side and she will not be started on an EKTA inhibitor. She can continue to follow-up with cardiology on an outpatient basis given her systolic congestive heart failure and atrial fibrillation. 3. Acute encephalopathy likely secondary to #1 resolved 4. Chronic alcohol use Patient is currently alert and oriented x3. She is able to hold a conversation and is appropriate. CT scan of the head showed a possible aneurysm, CTA of the head was done which did not show any significant abnormalities. UA negative Patient advised to avoid alcohol. No signs of withdrawal throughout the hospitalization. Acute encephalopathy has resolved. Continue folic acid, continue thiamine. 4. 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 She can follow-up with her primary care doctor and orthopedics after discharge for further management care regarding her bilateral knee pain. Patient will be discharged to a senior living facility today.
[2018-05-18 17:20] VITALS: O2SAT 97
[2018-05-18 17:24] VITALS: BP 104/60; PULSE 88; RESP 27
== END 2018-05-18 18:45 | DRG 291 ==
LOC: PHED 06:22 → PHEDA 09:54 → PHICU 10:55
PROVIDERS: ADMIT Hospitalist; ATTEND Hospitalist
CPT/HCPCS: 70450; 70496; 71010; 71045; 73560; 80048; 80053; 80162; 81001; 82140; 82550; 82607; 82746; 82948; 82962; 83520; 83735; 83880; 84443; 84484; 85025; 85027; 85651; 85652; 86592; 90774; 93005; 93306; 94150; 96374; 97110; 97116; 97163; 97530; 99285; C8952; J1940; J2060; J3475; J7040; J7050; Q9967